=== PATIENT | male | born 1955 | race Caucasian/White ===

== ENCOUNTER 2017-03-10 11:05 | Inpatient (IN) | payer SELFPAY ==
[2017-03-10] VITALS (7 sets, daily range): BP systolic 123–154; BP diastolic 72–100; PULSE 92–116; RESP 16–18; TEMP 96.3–102.1; O2SAT 93–97
[~2017-03-10] VITALS: Ht 167.6 cm; Wt 76.3 kg
--- NOTE | 2017-03-10 11:18 | PD ---
HPI Chief Complaint: General Weakness Time Seen by Provider: 11:12 Travel History International Travel<30 days: No Contact w/Intl Traveler<30days: No Traveled to known affect area: No History of Present Illness HPI C/O FEVER, PAINFUL URINATION, DARK URINE, BODY ACHES, DECREASED APPETITE, STATES SUPRAPUBIC AREA OF PAIN (SHARP, 03/17, NO ALLEVIATING/AGGRAVATING FACTORS ) PT DOES STATE THAT HE IS NAUSEOUS BUT DENIES V/D/CP/HERNANDEZ PFSH Past Medical History Hx Anticoagulant Therapy: No Cardiovascular Problems: Yes (HTN) Diabetes: No Social History Tobacco Use: No Allergies-Medications (Allergen,Severity, Reaction): Coded Allergies: No Known Allergies (Unverified , 03/10/17) Reported Meds & Prescriptions Reported Meds & Active Scripts Active Reported [Htn Med] 1 Tab PO DAILY [Diuretic] 1 Tab PO DAILY Amlodipine (Amlodipine Besylate) 5 Mg Tab 5 Mg PO DAILY Review of Systems Except as stated in HPI: all other systems reviewed are Neg General / Constitutional: Positive: Fever, Chills Genitourinary: Positive: Urgency, Dysuria, Hematuria Musculoskeletal: Positive: Myalgias Physical Exam Narrative GENERAL: SKIN: Warm and dry. HEAD: Atraumatic. Normocephalic. EYES: Pupils equal and round. No scleral icterus. No injection or drainage. ENT: No nasal bleeding or discharge. Mucous membranes pink and moist. NECK: Trachea midline. No JVD. CARDIOVASCULAR: Regular rate and rhythm. RESPIRATORY: No accessory muscle use. Clear to auscultation. Breath sounds equal bilaterally. GASTROINTESTINAL: Abdomen soft, MILD SUPRAPUBIC TTP, nondistended. NEG CVA TTP MUSCULOSKELETAL: Extremities without clubbing, cyanosis, or edema. No obvious deformities. NEUROLOGICAL: Awake and alert. No obvious cranial nerve deficits. Motor grossly within normal limits. Five out of 5 muscle strength in the arms and legs. Normal speech. PSYCHIATRIC: Appropriate mood and affect; insight and judgment normal. Data Data Last Documented VS Vital Signs Date Time Temp Pulse Resp B/P Pulse Ox O2 Delivery O2 Flow Rate FiO2 03/10/17 12:15 99.3 103 16 150/72 97 Room Air Orders Complete Blood Count With Diff (03/10/17 11:14) Comprehensive Metabolic Panel (03/10/17 11:14) Lactic Acid Sepsis Protocol (03/10/17 11:14) Lipase (03/10/17 11:14) Urinalysis - C+S If Indicated (03/10/17 11:14) Influenzae A/B Antigen (03/10/17 11:14) Blood Culture (03/10/17 11:14) Chest, Single Ap (03/10/17 11:14) Sodium Chlor 0.9% 1000 Ml Inj (Ns 1000 M (03/10/17 11:30) Ibuprofen Liq (Motrin Liq) (03/10/17 11:30) Ceftriaxone Inj (Rocephin Inj) (03/10/17 11:30) Ct Abd/Pel W/O Iv Contrast (03/10/17 11:29) Urine Culture (03/10/17 11:30) Sodium Chlor 0.9% 1000 Ml Inj (Ns 1000 M (03/10/17 12:45) Admit To Inpatient (03/10/17 ) Vital Signs (Adult) Q4H (03/10/17 13:03) Neuro Checks Q4H (03/10/17 13:03) Activity Oob Ad Vivien (03/10/17 13:03) Diet Regular Basic (03/10/17 Lunch) Sodium Chlor 0.9% 1000 Ml Inj (Ns 1000 M (03/10/17 13:03) Sodium Chloride 0.9% Flush (Ns Flush) (03/10/17 13:15) Sodium Chloride 0.9% Flush (Ns Flush) (03/10/17 21:00) Basic Metabolic Panel (Bmp) (03/11/17 06:00) Complete Blood Count With Diff (03/11/17 06:00) Creatine Kinase (Cpk) (03/10/17 13:03) Ceftriaxone Inj (Rocephin Inj) (03/11/17 14:00) Admit Order (Ed Use Only) (03/10/17 13:12) Labs Laboratory Tests Test 03/10/17 03/10/17 11:30 11:40 Urine Color BROWN Urine Turbidity CLOUDY Urine pH 6.5 Urine Specific [place] 1.026 Urine Protein 100 mg/dL Urine Glucose (UA) NEG mg/dL Urine Ketones TRACE mg/dL Urine Occult Blood LARGE Urine Nitrite POS Urine Bilirubin NEG Urine Leukocyte Esterase SMALL Urine RBC INNUM /hpf Urine WBC INNUM /hpf Urine WBC Clumps MANY Urine Bacteria RARE /hpf Microscopic Urinalysis Comment CULTURE INDICATED White Blood Count 23.5 TH/MM3 Red Blood Count 5.59 MIL/MM3 Hemoglobin 16.7 GM/DL Hematocrit 48.5 % Mean Corpuscular Volume 86.7 FL Mean Corpuscular Hemoglobin 29.8 PG Mean Corpuscular Hemoglobin 34.4 % Concent Red Cell Distribution Width 12.7 % Platelet Count 192 TH/MM3 Mean Platelet Volume 8.9 FL Neutrophils (%) (Auto) 88.4 % Lymphocytes (%) (Auto) 2.5 % Monocytes (%) (Auto) 6.8 % Eosinophils (%) (Auto) 0.1 % Basophils (%) (Auto) 2.2 % Neutrophils # (Auto) 20.8 TH/MM3 Lymphocytes # (Auto) 0.6 TH/MM3 Monocytes # (Auto) 1.6 TH/MM3 Eosinophils # (Auto) 0.0 TH/MM3 Basophils # (Auto) 0.5 TH/MM3 CBC Comment DIFF FINAL Differential Comment Sodium Level 139 MEQ/L Potassium Level 3.0 MEQ/L Chloride Level 100 MEQ/L Carbon Dioxide Level 26.0 MEQ/L Anion Gap 13 MEQ/L Blood Urea Nitrogen 15 MG/DL Creatinine 1.40 MG/DL Estimat Glomerular Filtration 52 ML/MIN Rate Random Glucose 183 MG/DL Lactic Acid Level 3.6 mmol/L Calcium Level 9.2 MG/DL Total Bilirubin 1.1 MG/DL Aspartate Amino Transf 18 U/L (AST/SGOT) Alanine Aminotransferase 40 U/L (ALT/SGPT) Alkaline Phosphatase 84 U/L Total Creatine Kinase 166 U/L Total Protein 8.1 GM/DL Albumin 3.9 GM/DL Lipase 92 U/L [facility] Medical Decision Making Medical Screen Exam Complete: Yes Emergency Medical Condition: Yes Medical Record Reviewed: Yes Differential Diagnosis UTI V PYELO V INFECTED KIDNEY STONE V DIVERTIC V APPY Narrative Course PATIENT SEEN AND STARTED ON SEPSIS PROTOCOL AND GIVEN IV ABX [place]. AFTER EVALUATION AND TREATMENT, PT IS MUCH IMPROVED AND IS LESS PAINFUL AND TOLERATING EVERYTHING WELL NOW. I MADE PT AWARE OF RESULTS AND NEED FOR ADMISSION AND FURTHER IV TREATMENT. CASE D/W ADMITTING DOC Sepsis Criteria SIRS Criteria (2 or more): WBC > 81666, < 4000 or > 10% bands Severe Sepsis (+one): Lactate >2 Diagnosis Primary Impression: SEPSIS-SUSPECT URINARY SOURCE Admitting Information Admitting Physician Requests: Observation Marek Kearns MD Mar 10, 2017 11:18
[2017-03-10] MEDS ORDERED: DEPRESSION MED PO (11:20)
[2017-03-10] MEDS ORDERED: DIURTAB PO (11:24)
[2017-03-10] MEDS ORDERED: AMLO5TAB2 PO (11:24)
[2017-03-10] MEDS ORDERED: HTN MED PO (11:24)
[2017-03-10] MEDS ORDERED: cefTRIAXone INJ 1,000 MG in SODIUM CHLORIDE 0.9% INJ 100 ML IV ONE (11:30)
[2017-03-10] MEDS ORDERED: SODIUM CHLOR 0.9% 1000 ML INJ 1,000 ML IV ONE ×2 (11:30→12:45)
[2017-03-10] MEDS ORDERED: IBUPROFEN SUSP 100 MG/5 ML UDC PO ONE (11:30)
[2017-03-10 11:51] LABS: AUTOMATED NEUTROPHIL # 20.8 TH/MM3 (1.8-7.7); BASOPHIL # 0.5 TH/MM3 (0-0.2); BASOPHIL % 2.2 % (0.0-2.0); EOSINOPHIL % 0.1 % (0.0-4.0); HEMATOCRIT 48.5 % (39.0-51.0); LYMPH % 2.5 % (9.0-44.0); LYMPHOCYTE # 0.6 TH/MM3 (1.0-4.8); MEAN CELL VOLUME 86.7 FL (80.0-100.0); MEAN CORPUSCULAR HEMOGLOBIN 29.8 PG (27.0-34.0); MEAN CORPUSCULAR HGB CONC 34.4 % (32.0-36.0); MONO % 6.8 % (0.0-8.0); NEUT % 88.4 % (16.0-70.0); PLATELET COUNT 192 TH/MM3 (150-450); RED BLOOD COUNT 5.59 MIL/MM3 (4.50-5.90); RED CELL DISTRIBUTION WIDTH 12.7 % (11.6-17.2); WHITE BLOOD COUNT 23.5 TH/MM3 (4.0-11.0)
[2017-03-10 11:53] LABS: BLOOD, URINE LARGE (NEG); GLUCOSE,URINE NEG (NEG); KETONE, URINE TRACE mg/dL (NEG); PH, URINE 6.5 (5.0-8.5)
[2017-03-10 11:53] LABS: HEMO FLAGS DIFF FINAL
[2017-03-10 11:54] LABS: NITRITE,URINE POS (NEG)
--- NOTE | 2017-03-10 11:54 | RADRPT ---
EXAM DATE/TIME: 03/10/2017 11:33 [facility] COMPARISON: No previous studies available for comparison. INDICATIONS : Fever, hemuturia. MEDICAL HISTORY : None. SURGICAL HISTORY : None. ENCOUNTER: Initial ACUITY: 2 days PAIN SCORE: 0/10 LOCATION: Bilateral chest FINDINGS: A single view of the chest demonstrates the lungs to be symmetrically aerated without evidence of mas s, infiltrate or effusion. The cardiomediastinal contours are unremarkable. Osseous structures are intact. CONCLUSION: No acute disease. Harvey Roque MD FACR on March 10, 2017 at 11:51 Board Certified Radiologist. This report was verified electronically.
[2017-03-10 12:00] LABS: CHLORIDE 100 MEQ/L (98-107); SODIUM (NA) 139 MEQ/L (136-145)
[2017-03-10 12:03] LABS: ANION GAP 13 MEQ/L (5-15)
[2017-03-10 12:04] LABS: BLOOD UREA NITROGEN 15 MG/DL (7-18)
[2017-03-10 12:05] LABS: URINE COLOR BROWN (YELLW/STRAW)
[2017-03-10 12:06] LABS: WBC, URINE INNUM /hpf (0-5)
[2017-03-10 12:06] LABS: ALT (GPT) 40 U/L (12-78); AST (GOT) 18 U/L (15-37)
[2017-03-10 12:07] LABS: GLOMERULAR FILTRATION RATE 52 ML/MIN (>89)
[2017-03-10 12:07] LABS: BACTERIA, URINE RARE /hpf; COMMENT (UR) CULTURE INDICATED; CULTURE IF INDICATED CULTURE INDICATED; RBC, URINE INNUM /hpf (0-3)
[2017-03-10 12:08] LABS: TOTAL BILIRUBIN ADULT 1.1 MG/DL (0.2-1.0)
[2017-03-10 12:09] LABS: ALKALINE PHOSPHATASE 84 U/L (45-117)
--- NOTE | 2017-03-10 12:09 | RADRPT ---
EXAM DATE/TIME: 03/10/2017 11:41 [facility] COMPARISON: No previous studies available for comparison. INDICATIONS : Dizziness, fever, and painful urination with pelvic pain. Episodes of hematuria. Evaluate for calculi . ORAL CONTRAST: No oral contrast ingested. RADIATION DOSE: 13.15 CTDIvol (mGy) MEDICAL HISTORY : Hypertension. SURGICAL HISTORY : None. ENCOUNTER: Initial ACUITY: 2 days PAIN SCALE: 10/10 LOCATION: lower quadrant TECHNIQUE: Volumetric scanning of the abdomen and pelvis was performed. Using automated exposure control and ad justment of the mA and/or kV according to patient size, radiation dose was kept as low as reasonably achievable to obtain optimal diagnostic quality images. DICOM format image data is available electro nically for review and comparison. FINDINGS: LOWER LUNGS: The visualized lower lungs are clear. LIVER: Homogeneous density without lesion. There is no dilation of the biliary tree. A few tiny calcified gallstones in the gallbladder. No surrounding inflammatory changes.. SPLEEN: Normal size without lesion. PANCREAS: Within normal limits. KIDNEYS: Normal in size and shape. There is no mass or hydronephrosis. 3 mm stone upper pole left kidney not causing obstruction. ADRENAL GLANDS: Within normal limits. VASCULAR: There is no aortic aneurysm. BOWEL/MESENTERY: The stomach, small bowel, and colon demonstrate no acute abnormality. There is no free intraperitone al air or fluid. The appendix is unremarkable. No inflammatory changes. ABDOMINAL WALL: Within normal limits. RETROPERITONEUM: There is no lymphadenopathy. BLADDER: There is a 1.7 cm calcified stone in the urinary bladder. REPRODUCTIVE: The prostate is diffusely enlarged at 7.2 x 6.9 cm. INGUINAL: There is no lymphadenopathy or hernia. MUSCULOSKELETAL: Within normal limits for patient age. CONCLUSION: 1. Large calcified bladder stone. 2. 3 mm stone upper pole left kidney not causing obstruction. 3. A few tiny gallstones in the gallbladder. No biliary tract obstruction. 4. Diffuse enlargement of the prostate gland. Jose Luis Rushing MD on March 10, 2017 at 12:02 Board Certified Radiologist. This report was verified electronically.
[2017-03-10] MEDS: SODIUM CHLOR 0.9% 1000 ML INJ 1,000 ML IV SCH ×2 (13:03→14:03)
[2017-03-10] MEDS ORDERED: SODIUM CHLORIDE 0.9% FLUSH 10 ML FLUSH IV FLUSH PRN (13:15)
[2017-03-10 13:46] LABS: LACTIC ACID GHOST NOT REPORTABLE
[2017-03-10] MEDS ORDERED: KETOROLAC TROMETHAMINE 60 MG/2 ML (IM) VIAL IM PRN (15:15)
--- NOTE | 2017-03-10 15:37 | HHI.HP ---
[facility] [place] No Primary Care Physician Admission Diagnosis SEPSIS-POSSIBLE SOURCE INFECTED KIDNEY STONE Diagnoses: Chief Complaint: Fever and confusion Travel History International Travel<30 Days: Yes Contact w/Intl Traveler <30 Da: Yes Name of Country Traveled to: [place] Traveled to Known Affected Are: No Sepsis Criteria SIRS Criteria (2 or more): Temp > 100.9 or < 96.8, Heart rate over 90, WBC > 44865, < 4000 or > 10% bands Sepsis Criteria (SIRS+source): Infect source susp/known Severe Sepsis (+one): Lactate >2 Criteria Outcome: Meets severe sepsis criteria History of Present Illness Patient is a 61-year-old gentleman with a history of hypertension and prostate enlargement has come to the emergency room complaining of confusion, myalgias and fever of 105 at home per his spouse. Patient had some increasing dysuria and frequency and is noted to be septic on exam with evidence of urinary tract infection. Images did show a very large bladder stone. Patient denies any history of nephrolithiasis and has not had any trouble previously with kidney trouble or pain. He was quite confused since family was concerned because he was delirious. Patient's been admitted to the hospital with signs and symptoms of sepsis. His symptoms have improved with IV hydration and initiation of antibiotics and the patient's bladder and testicular pain is now 3 out of 10 from 7 out of 10 after ibuprofen in the emergency room. Review of Systems Constitutional: DENIES: Diaphoretic episodes, Fatigue, Fever, Weight gain, Weight loss, Chills, Dizziness, Change in appetite, Night Sweats Endocrine: DENIES: Heat/cold intolerance, Polydipsia, Polyuria, Polyphagia Eyes: DENIES: Blurred vision, Diplopia, Eye inflammation, Eye pain, Vision loss , Photosensitivity, Double Vision Ears, nose, mouth, throat: DENIES: Tinnitus, Hearing loss, Vertigo, Nasal discharge, Oral lesions, Throat pain, Hoarseness, Ear Pain, Running Nose, Epistaxis, Sinus Pain, Toothache, Odynophagia Respiratory: DENIES: Apneas, Cough, Snoring, Wheezing, Hemoptysis, Sputum production, Shortness of breath Cardiovascular: DENIES: Chest pain, Palpitations, Syncope, Dyspnea on Exertion , PND, Lower Extremity Edema, Orthopnea, Claudication Gastrointestinal: DENIES: Abdominal pain, Black stools, Bloody stools, Constipation, Diarrhea, Nausea, Vomiting, Difficulty Swallowing, Anorexia Genitourinary: COMPLAINS OF: Urgency, Dysuria, Testicular Pain, DENIES: Sexual dysfunction, Urinary frequency, Urinary incontinence, Hematuria, Nocturia , Penile Discharge, Testicular Swelling Musculoskeletal: DENIES: Joint pain, Muscle aches, Stiffness, Joint Swelling, Back pain, Neck pain Integumentary: DENIES: Abnormal pigmentation, Nail changes, Pruritus, Rash Hematologic/lymphatic: DENIES: Bruising, Lymphadenopathy Immunologic/allergic: DENIES: Eczema, Urticaria Neurologic: DENIES: Abnormal gait, Headache, Localized weakness, Paresthesias, Seizures, Speech Problems, Tremor, Poor Balance Psychiatric: COMPLAINS OF: Confusion, DENIES: Anxiety, Mood changes, Depression, Hallucinations, Agitation, Suicidal Ideation, Homicidal Ideation, Delusions Past Family Social History Past Medical History Hypertension Prostatic hyperplasia Past Surgical History Denies major surgery, had repair of the neck laceration Reported Medications Reviewed in the medical record, nothing new (patient's prescriptions are from [place]) Allergies: Coded Allergies: No Known Allergies (Unverified , 03/10/17) Active Ordered Medications Reviewed in the medical record Family History No family history of renal stones, family history hypertension and his mother and his father had coronary artery disease as well as prostate cancer Social History No tobacco or alcohol dependency, visiting from [place] Physical Exam Vital Signs Vital Signs Date Time Temp Pulse Resp B/P Pulse Ox O2 Delivery O2 Flow Rate FiO2 03/10/17 14:17 96.3 97 16 147/89 93 03/10/17 13:45 99.5 92 16 134/75 95 Room Air 03/10/17 13:15 94 16 146/79 95 Room Air 03/10/17 12:15 99.3 103 16 150/72 97 Room Air 03/10/17 11:16 16 95 Room Air 03/10/17 11:08 101.1 116 16 154/100 95 Physical Exam GENERAL: This is a well-nourished, well-developed patient, in no apparent distress. SKIN: No rashes, ecchymoses or lesions. Cool and dry. HEAD: Atraumatic. Normocephalic. No temporal or scalp tenderness. EYES: Pupils equal round and reactive. Extraocular motions intact. No scleral icterus. No injection or drainage. ENT: Nose without bleeding, purulent drainage or septal hematoma. Throat without erythema, tonsillar hypertrophy or exudate. Uvula midline. Airway patent. NECK: Trachea midline. No JVD or lymphadenopathy. Supple, nontender, no meningeal signs. CARDIOVASCULAR: Regular rate and rhythm without murmurs, gallops, or rubs. RESPIRATORY: Clear to auscultation. Breath sounds equal bilaterally. No wheezes , rales, or rhonchi. GASTROINTESTINAL: Bladder tenderness on exam, otherwise Abdomen soft, non-tender , nondistended. No hepato-splenomegaly, or palpable masses. No guarding. MUSCULOSKELETAL: Extremities without clubbing, cyanosis, or edema. No joint tenderness, effusion, or edema noted. No calf tenderness. Negative Homans sign bilaterally. NEUROLOGICAL: Awake and alert. Cranial nerves II through XII intact. Motor and sensory grossly within normal limits. Five out of 5 muscle strength in all muscle groups. Normal speech. Laboratory Laboratory Tests Test 03/10/17 03/10/17 11:30 11:40 Urine Color BROWN Urine Turbidity CLOUDY Urine pH 6.5 Urine Specific [place] 1.026 Urine Protein 100 Urine Glucose (UA) NEG Urine Ketones TRACE Urine Occult Blood LARGE Urine Nitrite POS Urine Bilirubin NEG Urine Leukocyte Esterase SMALL Urine RBC INNUM Urine WBC INNUM Urine WBC Clumps MANY Urine Bacteria RARE Microscopic Urinalysis Comment CULTURE INDICATED White Blood Count 23.5 Red Blood Count 5.59 Hemoglobin 16.7 Hematocrit 48.5 Mean Corpuscular Volume 86.7 Mean Corpuscular Hemoglobin 29.8 Mean Corpuscular Hemoglobin 34.4 Concent Red Cell Distribution Width 12.7 Platelet Count 192 Mean Platelet Volume 8.9 Neutrophils (%) (Auto) 88.4 Lymphocytes (%) (Auto) 2.5 Monocytes (%) (Auto) 6.8 Eosinophils (%) (Auto) 0.1 Basophils (%) (Auto) 2.2 Neutrophils # (Auto) 20.8 Lymphocytes # (Auto) 0.6 Monocytes # (Auto) 1.6 Eosinophils # (Auto) 0.0 Basophils # (Auto) 0.5 CBC Comment DIFF FINAL Differential Comment Sodium Level 139 Potassium Level 3.0 Chloride Level 100 Carbon Dioxide Level 26.0 Anion Gap 13 Blood Urea Nitrogen 15 Creatinine 1.40 Estimat Glomerular Filtration 52 Rate Random Glucose 183 Lactic Acid Level 3.6 Calcium Level 9.2 Total Bilirubin 1.1 Aspartate Amino Transf 18 (AST/SGOT) Alanine Aminotransferase 40 (ALT/SGPT) Alkaline Phosphatase 84 Total Creatine Kinase 166 Total Protein 8.1 Albumin 3.9 Lipase 92 Date/Time Procedure Status Source Growth 03/10/17 11:50 Influenza Types A,B Antigen (ANGELITA) - Final Complete Nasal Washing NEGATIVE FOR FLU A AND B ANTIGEN.... 03/10/17 11:50 Aerobic Blood Culture Received Blood Peripheral Pending 03/10/17 11:50 Anaerobic Blood Culture Received Blood Peripheral Pending 03/10/17 11:30 Urine Culture Received Urine Clean Catch Pending Result Diagram: 03/10/17 1140 03/10/17 1140 Imaging Last Impressions Abdomen/Pelvis CT 03/10/17 1129 Signed Impressions: Service Date/Time: Friday, March 10, 2017 11:41 - CONCLUSION: 1. Large calcified bladder stone. 2. 3 mm stone upper pole left kidney not causing obstruction. 3. A few tiny gallstones in the gallbladder. No biliary tract obstruction. 4. Diffuse enlargement of the prostate gland. Jose Luis Rushing MD Chest X-Ray 03/10/17 1114 Signed Impressions: Service Date/Time: Friday, March 10, 2017 11:33 - CONCLUSION: No acute disease. Harvey Roque MD FACR Septic Shock Reassessment Heart: Other (sinus tachycardia) Lungs: Clear Skin: Warm Peripheral Pulses: Bounding Right Radial Bounding Left Radial Bounding Right Popliteal Bounding Left Popliteal Bounding Right Dorsalis Pedis Bounding Left Dorsalis Pedis Bounding Right Posterior Tibial Bounding Left Posterior Tibial Capillary Refill: Brisk Assessment and Plan Problem List: (1) Kidney stone ICD Code: N20.0 Status: Acute Plan: Patient has history of kidney stones, patient still is rather large and pain is consistent with the location Urological evaluation pending Continue with IV fluids and antibiotics (2) Sepsis ICD Code: A41.9 Status: Acute Plan: Severe sepsis Patient with fever 101.1, heart rate 116. Leukocytosis with elevated lactic acid. Likely sepsis from UTI, complicated Continue with IV hydration and antibiotics (3) Acute kidney injury ICD Code: N17.9 Status: Acute Plan: Continue with IV hydration, avoid nephrotoxins (4) HTN (hypertension) ICD Code: I10 Status: Acute Plan: Controlled on amlodipine, will follow Physician Certification 2 Midnight Certification Type: Admission for Inpatient Services Order for Inpatient Services The services are ordered in accordance with Medicare regulations or non- Medicare payer requirements, as applicable. In the case of services not specified as inpatient-only, they are appropriately provided as inpatient services in accordance with the 2-midnight benchmark. Estimated LOS (days): 3 3 days is the estimated time the patient will need to remain in the hospital, assuming treatment plan goals are met and no additional complications. Post-Hospital Plan: Home Meredith Campos MD Mar 10, 2017 15:37
[2017-03-10] MEDS ORDERED: LIDOCAINE HCL 2% JELLY 5 ML SYRINGE TOPICAL ONE (17:00)
--- NOTE | 2017-03-10 17:07 | PD.CONS ---
HPI Service Urology Consult Requested By Primary Care Physician No Primary Care Physician Diagnosis: (1) Kidney stone ICD Code: N20.0 (2) Sepsis ICD Code: A41.9 (3) Acute kidney injury ICD Code: N17.9 (4) HTN (hypertension) ICD Code: I10 History of Present Illness 61-year-old male presents with lower abdominal pain and history of difficulty urinating with fever and chills. CT scan upon presentation demonstrated a large bladder stone approximately 3 cm in size with benign prostatic hypertrophy. There is no evidence of any hydronephrosis. His creatinine on admission was 1.4. According to his daughter, she does state that he does have difficulty with urination and goes often to the bathroom. This is been going on for some time. He does not note a prior history of urinary tract infections or hematuria. 16 Portuguese De Anda catheter was placed at the bedside without difficulty and approximately 200 cc were noted upon return. His white count on admission is 23.5 and his urinalysis demonstrates nitrite positive with many white cells. Review of Systems Constitutional: COMPLAINS OF: Fever Endocrine: DENIES: Heat/cold intolerance Eyes: DENIES: Blurred vision Ears, nose, mouth, throat: DENIES: Tinnitus Respiratory: DENIES: Apneas Cardiovascular: DENIES: Chest pain Gastrointestinal: COMPLAINS OF: Abdominal pain Genitourinary: DENIES: Sexual dysfunction Musculoskeletal: DENIES: Joint pain Hematologic/lymphatic: DENIES: Bruising Immunologic/allergic: DENIES: Eczema Neurologic: DENIES: Abnormal gait Past Family Social History Past Medical History Hypertension BPH Past Surgical History None Reported Medications Refer to chart Allergies: Coded Allergies: No Known Allergies (Unverified , 03/10/17) Family History Father with history of prostate cancer Social History Denies smoking drinking or using drugs Physical Exam Vital Signs Date Time Temp Pulse Resp B/P Pulse Ox O2 Delivery O2 Flow Rate FiO2 03/10/17 16:00 96.9 93 16 142/76 94 03/10/17 14:17 96.3 97 16 147/89 93 03/10/17 13:45 99.5 92 16 134/75 95 Room Air 03/10/17 13:15 94 16 146/79 95 Room Air 03/10/17 12:15 99.3 103 16 150/72 97 Room Air 03/10/17 11:16 16 95 Room Air 03/10/17 11:08 101.1 116 16 154/100 95 Physical Exam GENERAL: This is a well-nourished, well-developed patient, in no apparent distress. SKIN: No rashes, ecchymoses or lesions. Cool and dry. HEAD: Atraumatic. Normocephalic. No temporal or scalp tenderness. EYES: Pupils equal round and reactive. Extraocular motions intact. No scleral icterus. No injection or drainage. ENT: Nose without bleeding, purulent drainage or septal hematoma. Throat without erythema, tonsillar hypertrophy or exudate. Uvula midline. Airway patent. NECK: Trachea midline. No JVD or lymphadenopathy. Supple, nontender, no meningeal signs. CARDIOVASCULAR: Regular rate and rhythm without murmurs, gallops, or rubs. RESPIRATORY: Clear to auscultation. Breath sounds equal bilaterally. No wheezes , rales, or rhonchi. GASTROINTESTINAL: Abdomen soft, non-tender, nondistended. No hepato-splenomegaly , or palpable masses. No guarding. GENITOURINARY: Uncircumcised phallus, testes descended nontender, 16 Portuguese De Anda catheter placed the bedside without difficulty. 200 cc of cloudy urine drained. Prostate 80 g smooth and no nodules, slightly tender. MUSCULOSKELETAL: Extremities without clubbing, cyanosis, or edema. No joint tenderness, effusion, or edema noted. No calf tenderness. Negative Homans sign bilaterally. NEUROLOGICAL: Awake and alert. Cranial nerves II through XII intact. Motor and sensory grossly within normal limits. Five out of 5 muscle strength in all muscle groups. Normal speech. Laboratory Tests Test 03/10/17 03/10/17 03/10/17 11:30 11:40 14:43 Urine Color BROWN Urine Turbidity CLOUDY Urine pH 6.5 Urine Specific [place] 1.026 Urine Protein 100 Urine Glucose (UA) NEG Urine Ketones TRACE Urine Occult Blood LARGE Urine Nitrite POS Urine Bilirubin NEG Urine Leukocyte Esterase SMALL Urine RBC INNUM Urine WBC INNUM Urine WBC Clumps MANY Urine Bacteria RARE Microscopic Urinalysis Comment CULTURE INDICATED White Blood Count 23.5 Red Blood Count 5.59 Hemoglobin 16.7 Hematocrit 48.5 Mean Corpuscular Volume 86.7 Mean Corpuscular Hemoglobin 29.8 Mean Corpuscular Hemoglobin 34.4 Concent Red Cell Distribution Width 12.7 Platelet Count 192 Mean Platelet Volume 8.9 Neutrophils (%) (Auto) 88.4 Lymphocytes (%) (Auto) 2.5 Monocytes (%) (Auto) 6.8 Eosinophils (%) (Auto) 0.1 Basophils (%) (Auto) 2.2 Neutrophils # (Auto) 20.8 Lymphocytes # (Auto) 0.6 Monocytes # (Auto) 1.6 Eosinophils # (Auto) 0.0 Basophils # (Auto) 0.5 CBC Comment DIFF FINAL Differential Comment Sodium Level 139 Potassium Level 3.0 Chloride Level 100 Carbon Dioxide Level 26.0 Anion Gap 13 Blood Urea Nitrogen 15 Creatinine 1.40 Estimat Glomerular Filtration 52 Rate Random Glucose 183 Lactic Acid Level 3.6 4.4 Calcium Level 9.2 Total Bilirubin 1.1 Aspartate Amino Transf 18 (AST/SGOT) Alanine Aminotransferase 40 (ALT/SGPT) Alkaline Phosphatase 84 Total Creatine Kinase 166 Total Protein 8.1 Albumin 3.9 Lipase 92 Date/Time Procedure Status Source Growth 03/10/17 11:50 Influenza Types A,B Antigen (ANGELITA) - Final Complete Nasal Washing NEGATIVE FOR FLU A AND B ANTIGEN.... 03/10/17 11:50 Aerobic Blood Culture Received Blood Peripheral Pending 03/10/17 11:50 Anaerobic Blood Culture Received Blood Peripheral Pending 03/10/17 11:30 Urine Culture Received Urine Clean Catch Pending Result Diagram: 03/10/17 1140 03/10/17 1140 Imaging Last Impressions Abdomen/Pelvis CT 03/10/17 1129 Signed Impressions: Service Date/Time: Friday, March 10, 2017 11:41 - CONCLUSION: 1. Large calcified bladder stone. 2. 3 mm stone upper pole left kidney not causing obstruction. 3. A few tiny gallstones in the gallbladder. No biliary tract obstruction. 4. Diffuse enlargement of the prostate gland. Jose Luis Rushing MD Chest X-Ray 03/10/17 1114 Signed Impressions: Service Date/Time: Friday, March 10, 2017 11:33 - CONCLUSION: No acute disease. Harvey Roque MD FACR Assessment and Plan Assessment and Plan 61-year-old male presenting with history of BPH with obstruction and lower urinary tract symptoms with large 3-4 cm bladder calculus noted on CT scan with evidence of possible urosepsis. Maintain De Anda catheter Continue IV antibiotics, follow culture results. Start Flomax 0.4 mg by mouth daily at bedtime. Surgical intervention is not indicated at this time due to signs of sepsis. He will need catheter drainage until his infection clears and then will need an outpatient cystoscopy litholapaxy. We'll follow with you and thank you for the consult and allowing me to participate in the care of this patient. Mika Garcia DO Mar 10, 2017 17:07
[2017-03-10] MEDS: TAMSULOSIN HCL 0.4 MG CAP PO SCH (18:24)
[2017-03-10] MEDS: SODIUM CHLORIDE 0.9% FLUSH 10 ML FLUSH IV FLUSH SCH (20:08)
[2017-03-10] MEDS: ACETAMINOPHEN 325 MG TAB PO PRN (21:08)
[2017-03-11] VITALS: BP 120/82; PULSE 104; RESP 18; TEMP 99.9; O2SAT 96
[2017-03-11 00:19] LABS: LACTIC ACID GHOST NOT REPORTABLE
[2017-03-11] MEDS: SODIUM CHLOR 0.9% 1000 ML INJ 1,000 ML IV SCH ×2 (01:22→19:03)
[2017-03-11 04:00] VITALS: BP 130/84; PULSE 106; RESP 16; TEMP 102; O2SAT 95
[2017-03-11] MEDS: ACETAMINOPHEN 325 MG TAB PO PRN ×3 (04:23→23:42)
[2017-03-11 07:32] LABS: AUTOMATED NEUTROPHIL # 18.4 TH/MM3 (1.8-7.7); BASOPHIL % 0.1 % (0.0-2.0); HEMATOCRIT 41.1 % (39.0-51.0); LYMPH % 4.3 % (9.0-44.0); LYMPHOCYTE # 0.9 TH/MM3 (1.0-4.8); MEAN CELL VOLUME 87.3 FL (80.0-100.0); MEAN CORPUSCULAR HEMOGLOBIN 29.8 PG (27.0-34.0); MEAN CORPUSCULAR HGB CONC 34.2 % (32.0-36.0); NEUT % 88.6 % (16.0-70.0); PLATELET COUNT 134 TH/MM3 (150-450); RED BLOOD COUNT 4.71 MIL/MM3 (4.50-5.90); WHITE BLOOD COUNT 20.8 TH/MM3 (4.0-11.0)
[2017-03-11 07:55] LABS: HEMO FLAGS AUTO DIFF
[2017-03-11 07:58] LABS: BICARBONATE 24.8 MEQ/L (21.0-32.0)
[2017-03-11 08:00] VITALS: BP 136/83; PULSE 94; RESP 18; TEMP 98.8; O2SAT 95
[2017-03-11] MEDS: TAMSULOSIN HCL 0.4 MG CAP PO SCH (08:24)
[2017-03-11] MEDS: amLODIPine BESYLATE 5 MG TAB PO SCH (08:24)
[2017-03-11] MEDS: SODIUM CHLORIDE 0.9% FLUSH 10 ML FLUSH IV FLUSH SCH ×2 (08:25→21:00)
[2017-03-11 08:44] LABS: SCAN/DIFF AUTO DIFF CONFIRMED
[2017-03-11] MEDS ORDERED: POTASSIUM CHLORIDE 10 MEQ CONTROLLED RELEASE TAB PO ONE (08:45)
--- NOTE | 2017-03-11 11:10 | HHI.PR ---
Subjective Remarks Patient seen today in follow-up for sepsis, UTI with stone. Discussed with urology yesterday who recommended continue IV antibiotics and treating infection. Patient will need outpatient lithotripsy. Discussed with patient. Leukocytosis mildly improved but still febrile at 102.0. Blood cultures are now positive. Objective Vitals Vital Signs Date Time Temp Pulse Resp B/P Pulse Ox O2 Delivery O2 Flow Rate FiO2 03/11/17 08:00 98.8 94 18 136/83 95 03/11/17 04:00 102.0 106 16 130/84 95 03/11/17 00:00 99.9 104 18 120/82 96 03/10/17 20:00 102.1 108 18 123/90 95 03/10/17 17:20 20 03/10/17 16:00 96.9 93 16 142/76 94 03/10/17 14:17 96.3 97 16 147/89 93 03/10/17 13:45 99.5 92 16 134/75 95 Room Air 03/10/17 13:15 94 16 146/79 95 Room Air 03/10/17 12:15 99.3 103 16 150/72 97 Room Air 03/10/17 11:16 16 95 Room Air 03/10/17 11:08 101.1 116 16 154/100 95 I/O 03/10/17 03/10/17 03/10/17 03/11/17 03/11/17 03/11/17 07:00 15:00 23:00 07:00 15:00 23:00 Intake Total 2100 ml 1400 ml Output Total 650 ml Balance 2100 ml -650 ml 1400 ml Intake IV Total 2100 ml 1400 ml Output Urine Total 650 ml Result Diagram: 03/11/17 0650 03/11/17 0650 A/P Problem List: (1) Kidney stone ICD Code: N20.0 Status: Acute Plan: Patient has history of kidney stones, maintain fagan Urological evaluation appreciated Continue with IV fluids and antibiotics (2) Sepsis ICD Code: A41.9 Status: Acute Plan: Severe sepsis Patient with fever 102.0 heart rate improved Leukocytosis mildly improved with improved lactic acid. Likely sepsis from UTI, complicated Continue with IV hydration and antibiotics (3) Acute kidney injury ICD Code: N17.9 Status: Acute Plan: improved Continue with IV hydration, avoid nephrotoxins (4) HTN (hypertension) ICD Code: I10 Status: Acute Plan: Controlled on amlodipine, will follow Meredith Campos MD Mar 11, 2017 11:10
[2017-03-11 12:00] VITALS: BP 156/91; PULSE 106; RESP 18; TEMP 101.7; O2SAT 94
[2017-03-11] MEDS ORDERED: cefTRIAXone INJ 1,000 MG in SODIUM CHLORIDE 0.9% INJ 100 ML IV SCH (14:00)
[2017-03-11 16:00] VITALS: BP 142/83; PULSE 102; RESP 18; TEMP 99.9; O2SAT 94
--- NOTE | 2017-03-11 16:37 | MB ---
cc: ZEENAT HARRIS MD DATE OF CONSULTATION 03/11/[address] Campos REASON FOR CONSULTATION Bacteremia/stone. HISTORY OF PRESENT ILLNESS This is a 61-year-old male who was admitted to the hospital after he presented to the emergency department with general weakness. The patient complained of fever painful urination, dark urine, body aches and decreased appetite. The patient is Albanian-speaking only and I was unable to obtain information from him because of the language diarrhea. I obtained information from the medical record. The patient was evaluated in the emergency department. He had a heart rate of 103 and temperature 99.3 and white count of 23.5 and also abnormal urinalysis and lactic acid level of 3.6. The patient was evaluated in the emergency department and he was admitted. He was admitted with diagnosis of sepsis-suspect urinary source. Urinalysis was abnormal and a urine culture was taken. The urine culture has gram-negative maru. Four bottles of blood cultures taken on admission has gram-negative maru with one bottle identified as E-coli. Testing for influenza was negative. The patient's temperature jazlyn to 102.1 degrees yesterday evening and again today the temperature jazlyn to 101.7 degrees. He is currently awake and he appears alert. He indicates that he has no pain but he feels warm. He has a De Anda catheter in place. He was started on intravenous ceftriaxone today. Yesterday, he received ceftriaxone as well. The white count today remains elevated. CT scan of the abdomen was performed and it showed a large calcified bladder stone and also a 3 mm stone at the upper pole of the left kidney, not causing obstruction. A few tiny gallstones were noted in the gallbladder. No biliary obstruction. Diffuse enlargement of the prostate gland was also noted. This is the first visit noted for this patient to this facility. The patient was evaluated by urology. It was felt that surgical intervention was not indicated. PAST MEDICAL HISTORY Hypertension, prostatic hyperplasia, repair of neck laceration. ALLERGIES NO KNOWN DRUG ALLERGIES. MEDICATIONS 1. Ceftriaxone. 2. Norvasc. 3. Tylenol. 4. Flomax. 5. Toradol. SOCIAL HISTORY The patient is originally from [place]. Rare alcohol use. No tobacco, no illicit drugs. FAMILY HISTORY Unable to obtain. REVIEW OF SYSTEMS Review of systems reviewed in the medical record. PHYSICAL EXAMINATION GENERAL: This is a well-developed male who does not appear to be in any acute distress. He is awake, alert and oriented. HEENT: Head atraumatic. Extraocular movements grossly intact. Pupils reactive to light. No icterus. Oropharynx moist mucosa. No lesions. NECK: Supple. LUNGS: Clear to auscultation. HEART: Tachycardiac. No murmurs or rubs or gallops. ABDOMEN: Bowel sounds present, soft, no tenderness appreciated. : Normal genitalia. RECTAL: Not performed. EXTREMITIES: No clubbing or cyanosis or edema. SKIN: No rash. NEURO: No gross focal findings. LABORATORY DATA WBC 20.8, 88% neutrophils, platelet count 134, hemoglobin 14.0, creatinine 1.20, BUN 17, estimated GFR 62, sodium 143. IMPRESSION 1. Sepsis from urinary tract infection due to gram-negative maru. Preliminary identification of E-coli in one of blood culture bottle. 2. Gram-negative UTI, probably due to E-coli as is in the blood stream. 3. Leukocytosis secondary to infection. 4. Bladder stone as well as left kidney stone. RECOMMENDATIONS 1. Continue ceftriaxone but increase the dose to 2 grams every 24 hours. 2. Monitor the gram-negative maru in the urine. 3. Monitor the blood cultures and sensitivity of the E-coli and follow the other blood culture. 4. Monitor white blood cell count and temperature. Thank you for this consultation. The patient's progress will be monitored and further recommendations will be given on followup if necessary. Zeenat Harris MD FD/REJI /2:48 PM /4:19 PM
[2017-03-11 20:00] VITALS: BP 142/99; PULSE 105; RESP 20; TEMP 100.6; O2SAT 94
[2017-03-12] VITALS (7 sets, daily range): BP systolic 140–161; BP diastolic 67–103; PULSE 63–110; RESP 18–20; TEMP 96.6–102.4; O2SAT 91–98
[2017-03-12] MEDS ORDERED: MORPHINE SULFATE 4 MG/ML INJ IV PUSH PRN (00:30)
[2017-03-12] MEDS: MORPHINE SULFATE 8 MG/ML INJ IV PUSH PRN ×3 (00:31→13:03)
[2017-03-12] MEDS: SODIUM CHLOR 0.9% 1000 ML INJ 1,000 ML IV SCH ×2 (05:41→15:03)
[2017-03-12 06:32] LABS: AUTOMATED NEUTROPHIL # 18.1 TH/MM3 (1.8-7.7); BASOPHIL # 0.1 TH/MM3 (0-0.2); BASOPHIL % 0.7 % (0.0-2.0); HEMATOCRIT 43.3 % (39.0-51.0); LYMPH % 5.5 % (9.0-44.0); LYMPHOCYTE # 1.2 TH/MM3 (1.0-4.8); MEAN CELL VOLUME 88.2 FL (80.0-100.0); MEAN CORPUSCULAR HEMOGLOBIN 29.6 PG (27.0-34.0); MEAN CORPUSCULAR HGB CONC 33.5 % (32.0-36.0); MONO % 7.4 % (0.0-8.0); NEUT % 86.4 % (16.0-70.0); PLATELET COUNT 141 TH/MM3 (150-450); RED BLOOD COUNT 4.91 MIL/MM3 (4.50-5.90); RED CELL DISTRIBUTION WIDTH 13.1 % (11.6-17.2); WHITE BLOOD COUNT 20.9 TH/MM3 (4.0-11.0)
[2017-03-12 06:35] LABS: POTASSIUM 3.5 MEQ/L (3.5-5.1)
[2017-03-12 06:38] LABS: BICARBONATE 24.7 MEQ/L (21.0-32.0)
[2017-03-12 06:50] LABS: HEMO FLAGS AUTO DIFF
[2017-03-12 07:23] LABS: SCAN/DIFF AUTO DIFF CONFIRMED
[2017-03-12] MEDS: amLODIPine BESYLATE 5 MG TAB PO SCH (07:59)
[2017-03-12] MEDS: TAMSULOSIN HCL 0.4 MG CAP PO SCH (07:59)
[2017-03-12] MEDS: ACETAMINOPHEN 325 MG TAB PO PRN ×2 (07:59→16:01)
[2017-03-12] MEDS: SODIUM CHLORIDE 0.9% FLUSH 10 ML FLUSH IV FLUSH SCH ×2 (08:02→21:00)
--- NOTE | 2017-03-12 08:12 | HHI.PR ---
Subjective Patient symptoms today Pt seen and examined. + b/c's with fever noted. c/o bladder spasms Objective Vital Signs Vital Signs Date Time Temp Pulse Resp B/P Pulse Ox O2 Delivery O2 Flow Rate FiO2 03/12/17 04:00 98.8 96 20 144/94 95 03/12/17 01:12 96.6 63 18 141/67 98 03/12/17 00:00 101.7 105 18 143/92 91 03/11/17 20:00 100.6 105 20 142/99 94 03/11/17 16:00 99.9 102 18 142/83 94 03/11/17 12:00 101.7 106 18 156/91 94 Intake & Output 03/12/17 03/12/17 07:00 19:00 Intake Total 200 ml Output Total 1150 ml Balance -950 ml Intake Oral 200 ml Output Urine Total 1150 ml # Bowel Movements 0 Result Diagram: 03/12/1760403/12/17604 Objective Remarks Abd:soft,nd, some tenderness over bladder De Anda with clear urine Medications and IVs Current Medications Medications (Trade) Dose Ordered Sig/Osmel Route Start Time Stop Time Status Last Admin (NS 1000 ml Inj) 1,000 ml @ 100 mls/hr Q10H IV 03/10/17 13:03 03/12/17 05:41 (NS Flush) 2 ml UNSCH PRN IV FLUSH 03/10/17 13:15 (NS Flush) 2 ml BID IV FLUSH 03/10/17 21:00 03/12/17 08:02 (Flomax) 0.4 mg DAILY PO 03/10/17 17:15 03/12/17 07:59 (Tylenol) 650 mg Q6HR PRN PO 03/10/17 21:00 03/12/17 07:59 Amlodipine Besylate 5 mg 5 mg DAILY PO 03/11/17 09:00 03/12/17 07:59 (Rocephin Inj/NS Inj) 100 ml @ 200 mls/hr Q24H IV 03/12/17 14:00 (Morphine Inj) 4 mg Q3H PRN IV PUSH 03/12/17 00:30 03/12/17 07:58 Assessment and Plan Assessment and Plan 61-year-old male presenting with history of BPH with obstruction and lower urinary tract symptoms with large 3-4 cm bladder calculus noted on CT scan with evidence of possible urosepsis. Maintain De Anda catheter Continue IV antibiotics, follow culture results. Start Flomax 0.4 mg by mouth daily at bedtime. Surgical intervention is not indicated at this time due to signs of sepsis. He will need catheter drainage until his infection clears and then will need an outpatient cystoscopy litholapaxy. We'll follow with you and thank you for the consult and allowing me to participate in the care of this patient. 03/12 61-year-old male presenting with history of BPH with obstruction and lower urinary tract symptoms with large 3-4 cm bladder calculus noted on CT scan with evidence gram - bacteremia Maintain De Anda catheter drainage Continue IV ABX. Follow B/C results and check sensitivities. Cystolithopaxy as outpatient. Levsin and B&O suppositories for bladder spasms. Mika Garcia DO Mar 12, 2017 08:12
[2017-03-12] MEDS ORDERED: HYOSCYAMINE 0.125 MG TAB PO PRN (09:00)
[2017-03-12] MEDS ORDERED: MISCELLANEOUS PHARMACY INFORMATION XX PRN ×2 (11:30)
[2017-03-12] MEDS ORDERED: ASP: Path resistant to other antimicrobials, culture proven PRN (12:00)
--- NOTE | 2017-03-12 12:31 | HHI.PR ---
Subjective Remarks Patient seen in follow-up for bladder stone with associated bacteremia and sepsis. Still febrile, ESBL in urine and in bloodstream. ID consult appreciated. Still with leukocytosis Objective Vitals Vital Signs Date Time Temp Pulse Resp B/P Pulse Ox O2 Delivery O2 Flow Rate FiO2 03/12/17 08:59 20 03/12/17 08:03 20 03/12/17 08:00 99.1 102 18 140/91 95 03/12/17 04:00 98.8 96 20 144/94 95 03/12/17 01:12 96.6 63 18 141/67 98 03/12/17 00:00 101.7 105 18 143/92 91 03/11/17 20:00 100.6 105 20 142/99 94 03/11/17 16:00 99.9 102 18 142/83 94 I/O 03/11/17 03/11/17 03/11/17 03/12/17 03/12/17 03/12/17 06:59 14:59 22:59 06:59 14:59 22:59 Intake Total 1400 ml 750 ml 200 ml Output Total 700 ml 1150 ml Balance 1400 ml 50 ml -950 ml Intake Oral 750 ml 200 ml IV Total 1400 ml Output Urine Total 700 ml 1150 ml # Bowel Movements 0 Result Diagram: 03/12/17 0605 03/12/17 0605 A/P Problem List: (1) Kidney stone ICD Code: N20.0 Status: Acute Plan: Patient has history of kidney stones, maintain fagan Urological evaluation appreciated Continue with IV fluids and antibiotics (2) Sepsis ICD Code: A41.9 Status: Acute Plan: Severe sepsis secondary to ESBL Escherichia coli in the urine and blood stream Patient with fever 11.7 heart rate improved Leukocytosis mildly improved with improved lactic acid. Likely sepsis from UTI/bacteremia, complicated Continue with IV hydration and antibiotics (meropenem) per ID (3) Acute kidney injury ICD Code: N17.9 Status: Resolved Plan: improved Continue with IV hydration, avoid nephrotoxins (4) HTN (hypertension) ICD Code: I10 Status: Acute Plan: uncontrolled on amlodipine alone We'll add Coreg as patient's medications are from [place] and he does not recall what they are Discharge Planning Continue current IV antibiotics Meredith Campos MD Mar 12, 2017 12:31
[2017-03-12] MEDS: CARVEDILOL 6.25 MG TAB PO SCH ×2 (13:02→21:30)
[2017-03-12] MEDS: MEROPENEM INJ 1,000 MG in SODIUM CHLORIDE 0.9% INJ 100 ML IV SCH (13:20)
[2017-03-12] MEDS ORDERED: cefTRIAXone INJ 2,000 MG in SODIUM CHLORIDE 0.9% INJ 100 ML IV SCH (14:00)
[2017-03-12] MEDS: BELLADONNA ALKALOIDS/OPIUM 60 MG SUPP RECTAL PRN (16:10)
--- NOTE | 2017-03-12 16:23 | HHI.IDPN ---
Note Infectious Disease Note Patient has spiking temps. Feels ill. D/W RN. Interpretation assistance by ASHLEY. Notes pain at the suprapubic area. Notes that he had chills earlier today. Denies back or flank pain. Notes that he has pain when he passes urine laying down but no pain when standing up. Has fagan in place. Patient was admitted to the hospital after he presented to the emergency department with general weakness. The patient complained of fever painful urination, dark urine, body aches and decreased appetite. PAST MEDICAL HISTORY Hypertension, prostatic hyperplasia, repair of neck laceration. ALLERGIES NO KNOWN DRUG ALLERGIES. ANTIBIOTICS: Ceftriaxone changed to Meropenem earlier today. SOCIAL HISTORY The patient is originally from [place]. Rare alcohol use. No tobacco, no illicit drugs. OBJECTIVE: Vital Signs Date Time Temp Pulse Resp B/P Pulse Ox O2 Delivery O2 Flow Rate FiO2 03/12/17 13:08 20 03/12/17 12:00 99.1 101 18 161/102 94 03/12/17 08:59 20 03/12/17 08:00 99.1 102 18 140/91 95 03/12/17 04:00 98.8 96 20 144/94 95 03/12/17 01:12 96.6 63 18 141/67 98 03/12/17 00:00 101.7 105 18 143/92 91 03/11/17 20:00 100.6 105 20 142/99 94 03/11/17 03/11/17 03/12/17 15:00 23:00 07:00 Intake Total 750 ml 200 ml Output Total 700 ml 1150 ml Balance 50 ml -950 ml Intake Oral 750 ml 200 ml Output Urine Total 700 ml 1150 ml # Bowel Movements 0 Laboratory Tests Test 03/11/17 03/12/17 06:50 06:05 White Blood Count 20.8 TH/MM3 20.9 TH/MM3 Red Blood Count 4.71 MIL/MM3 4.91 MIL/MM3 Hemoglobin 14.0 GM/DL 14.5 GM/DL Hematocrit 41.1 % 43.3 % Mean Corpuscular Volume 87.3 FL 88.2 FL Mean Corpuscular Hemoglobin 29.8 PG 29.6 PG Mean Corpuscular Hemoglobin 34.2 % 33.5 % Concent Red Cell Distribution Width 13.0 % 13.1 % Platelet Count 134 TH/MM3 141 TH/MM3 Mean Platelet Volume 8.6 FL 9.8 FL Neutrophils (%) (Auto) 88.6 % 86.4 % Lymphocytes (%) (Auto) 4.3 % 5.5 % Monocytes (%) (Auto) 7.0 % 7.4 % Eosinophils (%) (Auto) 0.0 % 0.0 % Basophils (%) (Auto) 0.1 % 0.7 % Neutrophils # (Auto) 18.4 TH/MM3 18.1 TH/MM3 Lymphocytes # (Auto) 0.9 TH/MM3 1.2 TH/MM3 Monocytes # (Auto) 1.5 TH/MM3 1.5 TH/MM3 Eosinophils # (Auto) 0.0 TH/MM3 0.0 TH/MM3 Basophils # (Auto) 0.0 TH/MM3 0.1 TH/MM3 CBC Comment AUTO DIFF AUTO DIFF Differential Comment AUTO DIFF AUTO DIFF CONFIRMED CONFIRMED Laboratory Tests Test 03/10/17 03/11/17 03/11/17 03/12/17 22:18 00:40 06:50 06:05 Lactic Acid Level 2.8 mmol/L 2.9 mmol/L 2.2 mmol/L Sodium Level 143 MEQ/L 143 MEQ/L Potassium Level 3.0 MEQ/L 3.5 MEQ/L Chloride Level 106 MEQ/L 109 MEQ/L Carbon Dioxide Level 24.8 MEQ/L 24.7 MEQ/L Anion Gap 12 MEQ/L 9 MEQ/L Blood Urea Nitrogen 17 MG/DL 14 MG/DL Creatinine 1.20 MG/DL 1.00 MG/DL Estimat Glomerular Filtration 62 ML/MIN 76 ML/MIN Rate Random Glucose 154 MG/DL 142 MG/DL Calcium Level 8.2 MG/DL 8.7 MG/DL Microbiology Date/Time Procedure Status Source Growth 03/10/17 11:30 Urine Culture - Final Complete Urine Clean Catch Escherichia Coli Esbl Positive 03/10/17 11:40 Aerobic Blood Culture - Preliminary Resulted Blood Peripheral Escherichia Coli Esbl Positive 03/10/17 11:40 Anaerobic Blood Culture - Preliminary Resulted Escherichia Coli Esbl Positive 03/10/17 11:50 Aerobic Blood Culture - Preliminary Resulted Blood Peripheral Escherichia Coli 03/10/17 11:50 Anaerobic Blood Culture - Preliminary Resulted Escherichia Coli Esbl Positive 03/10/17 11:50 Influenza Types A,B Antigen (ANGELITA) - Final Complete Nasal Washing NEGATIVE FOR FLU A AND B ANTIGEN.... IMAGING: Abdomen/Pelvis CT 03/10/17 1129 Signed Impressions: Service Date/Time: Friday, March 10, 2017 11:41 - CONCLUSION: 1. Large calcified bladder stone. 2. 3 mm stone upper pole left kidney not causing obstruction. 3. A few tiny gallstones in the gallbladder. No biliary tract obstruction. 4. Diffuse enlargement of the prostate gland. Jose Luis Rushing MD Chest X-Ray 03/10/17 1114 Signed Impressions: Service Date/Time: Friday, March 10, 2017 11:33 - CONCLUSION: No acute disease. Harvey Roque MD FACR PHYSICAL EXAMINATION GENERAL: No acute distress. looks ill. HEENT: Extraocular movements grossly intact. Pupils reactive to light. No icterus. Oropharynx moist mucosa. No lesions. NECK: Supple. LUNGS: Clear to auscultation. HEART: Tachycardiac. No murmurs or rubs or gallops. ABDOMEN: Bowel sounds present, soft, no tenderness appreciated. : Normal genitalia. EXTREMITIES: No clubbing or cyanosis or edema. SKIN: No rash. NEURO: No gross focal findings. IMPRESSION 1. Sepsis due to E. coli ESBL. urine source. 2. E. coli ESBL UTI. 3. Leukocytosis secondary to infection. WBC still elevated. 4. Bladder stone as well as left kidney stone. RECOMMENDATIONS 1. Continue Meropenem which I started earlier. 2. Monitor white blood cell count and temperature. 3. Discussed with medicine team to consider medication for spasms. 4. Treatment for bladder stone when infection is under control. Discussed plan with patient an . Tor Harris MD Mar 12, 2017 16:23
[2017-03-12] MEDS ORDERED: ENALAPRILAT 1.25 MG/ML VIAL IV PUSH PRN (16:45)
[2017-03-12 17:26] LABS: HEMOGLOBIN A1a 1.3 %; HEMOGLOBIN Ao 83.9 %; HEMOGLOBIN P3 4.1 %
[2017-03-12] MEDS: OXYBUTYNIN CHLORIDE 5 MG TAB PO SCH (21:30)
[2017-03-13] VITALS: BP 144/91; PULSE 101; RESP 18; TEMP 101.5; O2SAT 90
[2017-03-13] MEDS: MEROPENEM INJ 1,000 MG in SODIUM CHLORIDE 0.9% INJ 100 ML IV SCH ×4 (01:00→22:18)
[2017-03-13 06:24] LABS: AUTOMATED NEUTROPHIL # 11.4 TH/MM3 (1.8-7.7); BASOPHIL # 0.1 TH/MM3 (0-0.2); BASOPHIL % 0.4 % (0.0-2.0); EOSINOPHIL % 0.2 % (0.0-4.0); HEMATOCRIT 40.3 % (39.0-51.0); LYMPH % 7.8 % (9.0-44.0); LYMPHOCYTE # 1.1 TH/MM3 (1.0-4.8); MEAN CELL VOLUME 87.5 FL (80.0-100.0); MEAN CORPUSCULAR HGB CONC 33.2 % (32.0-36.0); NEUT % 82.6 % (16.0-70.0); PLATELET COUNT 175 TH/MM3 (150-450); RED BLOOD COUNT 4.61 MIL/MM3 (4.50-5.90); RED CELL DISTRIBUTION WIDTH 13.4 % (11.6-17.2); WHITE BLOOD COUNT 13.8 TH/MM3 (4.0-11.0)
[2017-03-13 06:25] LABS: HEMO FLAGS AUTO DIFF
[2017-03-13 08:00] VITALS: BP 163/102; PULSE 98; RESP 18; TEMP 100.7; O2SAT 94
[2017-03-13 08:42] LABS: BANDS 5 % (0-6); NEUTROPHIL # MANUAL DIFF 10.9 TH/MM3 (1.8-7.7); POLYS (SEG NEUTROPHILS) 74 % (16-70)
[2017-03-13 08:43] LABS: PLATELET ESTIMATE SMEAR NORMAL (NORMAL); PLATELET MORPHOLOGY NORMAL (NORMAL); SCAN/DIFF FINAL DIFF MANUAL
--- NOTE | 2017-03-13 08:48 | HHI.PR ---
Subjective Remarks The patient appears in some discomfort due to pain. He has pain with urination. Fagan is in. No blood in the urine. She is standing up says pain is getting better when he is standing up. Pain is worse when he is laying in bed. He has some fevers and chills. Nausea improved. No vomiting diarrhea or constipation. No rash on the body. Objective Vitals Vital Signs Date Time Temp Pulse Resp B/P Pulse Ox O2 Delivery O2 Flow Rate FiO2 03/13/17 08:00 100.7 98 18 163/102 94 03/13/17 00:00 101.5 101 18 144/91 90 03/12/17 20:00 101.6 110 18 158/103 93 03/12/17 16:00 102.4 104 18 156/102 94 03/12/17 13:08 20 03/12/17 12:00 99.1 101 18 161/102 94 03/12/17 08:59 20 I/O 03/12/17 03/12/17 03/12/17 03/13/17 03/13/17 03/13/17 07:00 15:00 23:00 07:00 15:00 23:00 Intake Total 200 ml 725 ml 420 ml 480 ml Output Total 1150 ml 875 ml 500 ml 850 ml Balance -950 ml -150 ml -80 ml -370 ml Intake Oral 200 ml 725 ml 420 ml 480 ml Output Urine Total 1150 ml 875 ml 500 ml 850 ml # Bowel Movements 0 0 0 Result Diagram: 03/13/17 0605 03/12/17 0605 Imaging Last Impressions Abdomen/Pelvis CT 03/10/17 1129 Signed Impressions: Service Date/Time: Friday, March 10, 2017 11:41 - CONCLUSION: 1. Large calcified bladder stone. 2. 3 mm stone upper pole left kidney not causing obstruction. 3. A few tiny gallstones in the gallbladder. No biliary tract obstruction. 4. Diffuse enlargement of the prostate gland. Jose Luis Rushing MD Chest X-Ray 03/10/17 1114 Signed Impressions: Service Date/Time: Friday, March 10, 2017 11:33 - CONCLUSION: No acute disease. Harvey Roque MD FACR Objective Remarks GENERAL: 61 yo male, well nourished, well developed patient, appears in nad. CARDIOVASCULAR: Regular rate and rhythm. RESPIRATORY: No accessory muscle use. Clear to auscultation. Breath sounds equal bilaterally. GASTROINTESTINAL: Abdomen soft, non-tender, nondistended. Hepatic and splenic margins not palpable. MUSCULOSKELETAL: Extremities without clubbing, cyanosis, or edema. No obvious deformities. NEUROLOGICAL: Awake and alert. No obvious cranial nerve deficits. Motor grossly within normal limits. Five out of 5 muscle strength in the arms and legs. Normal speech. PSYCHIATRIC: Appropriate mood and affect; insight and judgment normal. A/P Problem List: (1) Kidney stone ICD Code: N20.0 Status: Acute (2) Sepsis ICD Code: A41.9 Status: Acute (3) Acute kidney injury ICD Code: N17.9 Status: Resolved (4) HTN (hypertension) ICD Code: I10 Status: Acute Assessment and Plan (1) Kidney stone ICD Code: N20.0 Status: Acute Plan: Patient has history of kidney stones Maintain fagan Urological evaluation appreciated Continue with IV fluids and antibiotics Pain meds per pain scale PO and IV dilaudid for breakthrough pain (2) Sepsis ICD Code: A41.9 Status: Acute Plan: Severe sepsis secondary to ESBL Escherichia coli in the urine and blood stream Patient with fever 11.7 heart rate improved Leukocytosis mildly improved with improved lactic acid. Likely sepsis from UTI/bacteremia, complicated Continue with IV hydration and antibiotics (meropenem) per ID (3) Acute kidney injury ICD Code: N17.9 Status: Resolved Plan: improved Continue with IV hydration, avoid nephrotoxins (4) HTN (hypertension) ICD Code: I10 Status: Acute Plan: uncontrolled on amlodipine alone We'll add Coreg as patient's medications are from [place] and he does not recall what they are Patient also with pain , will add pain meds per pain scale Discharge Planning Pending improvement. Continue current IV antibiotics Discussed with the patient, nurse Annie Craig MD Mar 13, 2017 08:48
[2017-03-13] MEDS: SODIUM CHLORIDE 0.9% FLUSH 10 ML FLUSH IV FLUSH SCH ×2 (09:04→21:00)
[2017-03-13] MEDS: CARVEDILOL 6.25 MG TAB PO SCH ×2 (09:04→22:18)
[2017-03-13] MEDS: SODIUM CHLOR 0.9% 1000 ML INJ 1,000 ML IV SCH ×2 (09:04→21:03)
[2017-03-13] MEDS: amLODIPine BESYLATE 5 MG TAB PO SCH (09:04)
[2017-03-13] MEDS: OXYBUTYNIN CHLORIDE 5 MG TAB PO SCH ×2 (09:04→22:18)
[2017-03-13] MEDS: TAMSULOSIN HCL 0.4 MG CAP PO SCH (09:04)
[2017-03-13] MEDS: MORPHINE SULFATE 8 MG/ML INJ IV PUSH PRN (10:19)
[2017-03-13] MEDS ORDERED: HYDROmorphone HCL PF 1 MG/ML VIAL IV PRN (10:45)
[2017-03-13] MEDS ORDERED: NALOXONE HCL 0.4 MG/ML AMP IV PRN (10:45)
[2017-03-13 12:00] VITALS: BP 149/94; PULSE 99; RESP 20; TEMP 99.3; O2SAT 95
[2017-03-13 15:32] VITALS: BP 155/93; PULSE 93; RESP 20; TEMP 100; O2SAT 93
--- NOTE | 2017-03-13 17:15 | HHI.IDPN ---
Note Infectious Disease Note Patient continues to have pain in the lower abdomen. Feels it is a little better. C/O HERNANDEZ. Notes chills. WBC lower. Feels ill. Interpretation assistance by [employer]. Denies back or flank pain. Notes that he has pain when he passes urine laying down but no pain when standing up. Has fagan in place. urine looks clear. Patient was admitted to the hospital after he presented to the emergency department with general weakness. The patient complained of fever painful urination, dark urine, body aches and decreased appetite. PAST MEDICAL HISTORY Hypertension, prostatic hyperplasia, repair of neck laceration. ALLERGIES NO KNOWN DRUG ALLERGIES. ANTIBIOTICS: Meropenem. SOCIAL HISTORY The patient is originally from [place]. Rare alcohol use. No tobacco, no illicit drugs. OBJECTIVE: Vital Signs Date Time Temp Pulse Resp B/P Pulse Ox O2 Delivery O2 Flow Rate FiO2 03/13/17 15:32 100.0 93 20 155/93 93 03/13/17 12:00 99.3 99 20 149/94 95 03/13/17 08:00 100.7 98 18 163/102 94 03/13/17 00:00 101.5 101 18 144/91 90 03/12/17 20:00 101.6 110 18 158/103 93 03/12/17 03/12/17 03/13/17 15:00 23:00 07:00 Intake Total 725 ml 420 ml 480 ml Output Total 875 ml 500 ml 850 ml Balance -150 ml -80 ml -370 ml Intake Oral 725 ml 420 ml 480 ml Output Urine Total 875 ml 500 ml 850 ml # Bowel Movements 0 0 Laboratory Tests Test 03/12/17 03/13/17 06:05 06:05 White Blood Count 20.9 TH/MM3 13.8 TH/MM3 Red Blood Count 4.91 MIL/MM3 4.61 MIL/MM3 Hemoglobin 14.5 GM/DL 13.4 GM/DL Hematocrit 43.3 % 40.3 % Mean Corpuscular Volume 88.2 FL 87.5 FL Mean Corpuscular Hemoglobin 29.6 PG 29.0 PG Mean Corpuscular Hemoglobin 33.5 % 33.2 % Concent Red Cell Distribution Width 13.1 % 13.4 % Platelet Count 141 TH/MM3 175 TH/MM3 Mean Platelet Volume 9.8 FL 8.5 FL Neutrophils (%) (Auto) 86.4 % 82.6 % Lymphocytes (%) (Auto) 5.5 % 7.8 % Monocytes (%) (Auto) 7.4 % 9.0 % Eosinophils (%) (Auto) 0.0 % 0.2 % Basophils (%) (Auto) 0.7 % 0.4 % Neutrophils # (Auto) 18.1 TH/MM3 11.4 TH/MM3 Lymphocytes # (Auto) 1.2 TH/MM3 1.1 TH/MM3 Monocytes # (Auto) 1.5 TH/MM3 1.2 TH/MM3 Eosinophils # (Auto) 0.0 TH/MM3 0.0 TH/MM3 Basophils # (Auto) 0.1 TH/MM3 0.1 TH/MM3 CBC Comment AUTO DIFF AUTO DIFF Differential Comment AUTO DIFF FINAL DIFF CONFIRMED MANUAL Neutrophils % (Manual) 74 % Band Neutrophils % 5 % Lymphocytes % 12 % Monocytes % 9 % Neutrophils # (Manual) 10.9 TH/MM3 Platelet Estimate NORMAL Platelet Morphology Comment NORMAL Red Cell Morphology Comment NORMAL Laboratory Tests Test 03/12/17 06:05 Sodium Level 143 MEQ/L Potassium Level 3.5 MEQ/L Chloride Level 109 MEQ/L Carbon Dioxide Level 24.7 MEQ/L Anion Gap 9 MEQ/L Blood Urea Nitrogen 14 MG/DL Creatinine 1.00 MG/DL Estimat Glomerular Filtration 76 ML/MIN Rate Random Glucose 142 MG/DL Hemoglobin A1c 6.2 % Lactic Acid Level 2.2 mmol/L Calcium Level 8.7 MG/DL IMAGING: Abdomen/Pelvis CT 03/10/17 1129 Signed Impressions: Service Date/Time: Friday, March 10, 2017 11:41 - CONCLUSION: 1. Large calcified bladder stone. 2. 3 mm stone upper pole left kidney not causing obstruction. 3. A few tiny gallstones in the gallbladder. No biliary tract obstruction. 4. Diffuse enlargement of the prostate gland. Jose Luis Rushing MD Chest X-Ray 03/10/17 1114 Signed Impressions: Service Date/Time: Friday, March 10, 2017 11:33 - CONCLUSION: No acute disease. Harvey Roque MD FACR PHYSICAL EXAMINATION GENERAL: No acute distress. HEENT: Extraocular movements grossly intact. Pupils reactive to light. No icterus. Oropharynx moist mucosa. No lesions. NECK: Supple. LUNGS: Clear to auscultation. HEART: Nl S1S2 No murmurs or rubs or gallops. ABDOMEN: Bowel sounds present, soft, no tenderness appreciated. : Normal genitalia. EXTREMITIES: No clubbing or cyanosis or edema. SKIN: No rash. NEURO: No gross focal findings. IMPRESSION 1. Sepsis due to E. coli ESBL. urine source. 2. E. coli ESBL UTI. 3. Leukocytosis secondary to infection. WBC lower. 4. Bladder stone as well as left kidney stone. RECOMMENDATIONS 1. Continue Meropenem. 2. Follow white blood cell count and temperature. 3. Treatment for bladder stone when infection is under control. Tor Harris MD Mar 13, 2017 17:14
[2017-03-13] MEDS: BELLADONNA ALKALOIDS/OPIUM 60 MG SUPP RECTAL PRN (17:36)
[2017-03-13] MEDS: ACETAMINOPHEN/HYDROcodone 325 MG/5 MG TAB PO PRN (17:36)
[2017-03-13 20:00] VITALS: BP 124/69; PULSE 99; RESP 18; TEMP 100.4; O2SAT 95
[2017-03-13] MEDS: ACETAMINOPHEN/HYDROcodone 325 MG/7.5 MG TAB PO PRN (22:19)
[2017-03-14] VITALS: BP 135/93; PULSE 91; RESP 18; TEMP 100.7; O2SAT 92
[2017-03-14] MEDS: MEROPENEM INJ 1,000 MG in SODIUM CHLORIDE 0.9% INJ 100 ML IV SCH ×3 (06:18→21:00)
[2017-03-14] MEDS: SODIUM CHLOR 0.9% 1000 ML INJ 1,000 ML IV SCH ×2 (06:18→18:14)
[2017-03-14 06:22] LABS: AUTOMATED NEUTROPHIL # 6.9 TH/MM3 (1.8-7.7); BASOPHIL % 0.3 % (0.0-2.0); EOSINOPHIL # 0.1 TH/MM3 (0-0.4); EOSINOPHIL % 0.8 % (0.0-4.0); HEMATOCRIT 37.3 % (39.0-51.0); LYMPH % 12.8 % (9.0-44.0); LYMPHOCYTE # 1.3 TH/MM3 (1.0-4.8); MEAN CELL VOLUME 87.6 FL (80.0-100.0); MEAN CORPUSCULAR HEMOGLOBIN 29.9 PG (27.0-34.0); MEAN CORPUSCULAR HGB CONC 34.1 % (32.0-36.0); MONO % 15.6 % (0.0-8.0); NEUT % 70.5 % (16.0-70.0); PLATELET COUNT 164 TH/MM3 (150-450); RED BLOOD COUNT 4.25 MIL/MM3 (4.50-5.90); RED CELL DISTRIBUTION WIDTH 13.2 % (11.6-17.2); WHITE BLOOD COUNT 9.8 TH/MM3 (4.0-11.0)
[2017-03-14 06:24] LABS: HEMO FLAGS DIFF FINAL
[2017-03-14 06:28] LABS: POTASSIUM 3.2 MEQ/L (3.5-5.1)
[2017-03-14 06:36] LABS: BICARBONATE 25.7 MEQ/L (21.0-32.0)
[2017-03-14 08:00] VITALS: BP 131/83; PULSE 76; RESP 20; TEMP 98.9; O2SAT 95
--- NOTE | 2017-03-14 08:40 | HHI.PR ---
Subjective Remarks Patient in nad , says she is eating better, no nausea. Pain is better controlled by meds. No fever or chills overnight. Urine is clear no blood in it , has adequate urine OP. Objective Vitals Vital Signs Date Time Temp Pulse Resp B/P Pulse Ox O2 Delivery O2 Flow Rate FiO2 03/14/17 08:00 98.9 76 20 131/83 95 03/14/17 00:00 100.7 91 18 135/93 92 03/13/17 20:00 100.4 99 18 124/69 95 03/13/17 15:32 100.0 93 20 155/93 93 03/13/17 12:00 99.3 99 20 149/94 95 I/O 03/13/17 03/13/17 03/13/17 03/14/17 03/14/17 03/14/17 07:00 15:00 23:00 07:00 15:00 23:00 Intake Total 480 ml 630 ml 1800 ml 720 ml Output Total 850 ml 2200 ml 2650 ml Balance -370 ml -1570 ml 1800 ml -1930 ml Intake Oral 480 ml 630 ml 720 ml IV Total 1800 ml Output Urine Total 850 ml 2200 ml 2650 ml # Bowel Movements 0 1 0 Result Diagram: 03/14/17 0430 03/14/17 0430 Objective Remarks GENERAL: 61 yo male, well nourished, well developed patient, appears in nad. CARDIOVASCULAR: Regular rate and rhythm. RESPIRATORY: No accessory muscle use. Clear to auscultation. Breath sounds equal bilaterally. GASTROINTESTINAL: Abdomen soft, non-tender, nondistended. Hepatic and splenic margins not palpable. MUSCULOSKELETAL: Extremities without clubbing, cyanosis, or edema. No obvious deformities. NEUROLOGICAL: Awake and alert. No obvious cranial nerve deficits. Motor grossly within normal limits. Five out of 5 muscle strength in the arms and legs. Normal speech. PSYCHIATRIC: Appropriate mood and affect; insight and judgment normal. A/P Problem List: (1) Kidney stone ICD Code: N20.0 Status: Acute (2) Sepsis ICD Code: A41.9 Status: Acute (3) Acute kidney injury ICD Code: N17.9 Status: Resolved (4) HTN (hypertension) ICD Code: I10 Status: Acute Assessment and Plan (1) Kidney stone ICD Code: N20.0 Status: Acute Plan: Patient has history of kidney stones Maintain fagan Urological evaluation appreciated Continue with IV fluids and antibiotics Pain meds per pain scale PO and IV dilaudid for breakthrough pain (2) Sepsis ICD Code: A41.9 Status: Acute Plan: Severe sepsis secondary to ESBL Escherichia coli in the urine and blood stream Patient with fever 11.7 heart rate improved Leukocytosis mildly improved with improved lactic acid. Likely sepsis from UTI/bacteremia, complicated Continue with IV hydration and antibiotics (meropenem) per ID (3) Acute kidney injury ICD Code: N17.9 Status: Resolved Plan: improved Continue with IV hydration, avoid nephrotoxins (4) HTN (hypertension) ICD Code: I10 Status: Acute Plan: uncontrolled on amlodipine alone We'll add Coreg as patient's medications are from [place] and he does not recall what they are Patient also with pain , will add pain meds per pain scale Discharge Planning Pending improvement. Continue current IV antibiotics Discussed with the patient, nurse Annie Craig MD Mar 14, 2017 08:40
[2017-03-14] MEDS: SODIUM CHLORIDE 0.9% FLUSH 10 ML FLUSH IV FLUSH SCH ×2 (09:00→21:00)
[2017-03-14] MEDS: CARVEDILOL 6.25 MG TAB PO SCH ×2 (09:32→21:00)
[2017-03-14] MEDS: TAMSULOSIN HCL 0.4 MG CAP PO SCH (09:32)
[2017-03-14] MEDS: OXYBUTYNIN CHLORIDE 5 MG TAB PO SCH ×2 (09:33→21:00)
[2017-03-14] MEDS: amLODIPine BESYLATE 5 MG TAB PO SCH (09:33)
[2017-03-14 12:00] VITALS: BP 147/96; PULSE 77; RESP 20; TEMP 98.2; O2SAT 97
--- NOTE | 2017-03-14 15:27 | HHI.IDPN ---
Note Infectious Disease Note Patient feels better. Not having pain currently. No HERNANDEZ. No chills. WBC lower. Afebrile. Interpretation assistance by RN. Patient was admitted to the hospital after he presented to the emergency department with general weakness. The patient complained of fever painful urination, dark urine, body aches and decreased appetite. PAST MEDICAL HISTORY Hypertension, prostatic hyperplasia, repair of neck laceration. ALLERGIES NO KNOWN DRUG ALLERGIES. ANTIBIOTICS: Meropenem. SOCIAL HISTORY The patient is originally from [place]. Rare alcohol use. No tobacco, no illicit drugs. OBJECTIVE: Vital Signs Date Time Temp Pulse Resp B/P Pulse Ox O2 Delivery O2 Flow Rate FiO2 03/14/17 12:00 98.2 77 20 147/96 97 03/14/17 08:00 98.9 76 20 131/83 95 03/14/17 00:00 100.7 91 18 135/93 92 03/13/17 20:00 100.4 99 18 124/69 95 03/13/17 15:32 100.0 93 20 155/93 93 03/13/17 03/13/17 03/14/17 15:00 23:00 07:00 Intake Total 630 ml 1800 ml 720 ml Output Total 2200 ml 2650 ml Balance -1570 ml 1800 ml -1930 ml Intake Oral 630 ml 720 ml IV Total 1800 ml Output Urine Total 2200 ml 2650 ml # Bowel Movements 1 0 Laboratory Tests Test 03/13/17 03/14/17 06:05 04:30 White Blood Count 13.8 TH/MM3 9.8 TH/MM3 Red Blood Count 4.61 MIL/MM3 4.25 MIL/MM3 Hemoglobin 13.4 GM/DL 12.7 GM/DL Hematocrit 40.3 % 37.3 % Mean Corpuscular Volume 87.5 FL 87.6 FL Mean Corpuscular Hemoglobin 29.0 PG 29.9 PG Mean Corpuscular Hemoglobin 33.2 % 34.1 % Concent Red Cell Distribution Width 13.4 % 13.2 % Platelet Count 175 TH/MM3 164 TH/MM3 Mean Platelet Volume 8.5 FL 9.3 FL Neutrophils (%) (Auto) 82.6 % 70.5 % Lymphocytes (%) (Auto) 7.8 % 12.8 % Monocytes (%) (Auto) 9.0 % 15.6 % Eosinophils (%) (Auto) 0.2 % 0.8 % Basophils (%) (Auto) 0.4 % 0.3 % Neutrophils # (Auto) 11.4 TH/MM3 6.9 TH/MM3 Lymphocytes # (Auto) 1.1 TH/MM3 1.3 TH/MM3 Monocytes # (Auto) 1.2 TH/MM3 1.5 TH/MM3 Eosinophils # (Auto) 0.0 TH/MM3 0.1 TH/MM3 Basophils # (Auto) 0.1 TH/MM3 0.0 TH/MM3 CBC Comment AUTO DIFF DIFF FINAL Neutrophils % (Manual) 74 % Band Neutrophils % 5 % Lymphocytes % 12 % Monocytes % 9 % Neutrophils # (Manual) 10.9 TH/MM3 Differential Comment FINAL DIFF MANUAL Platelet Estimate NORMAL Platelet Morphology Comment NORMAL Red Cell Morphology Comment NORMAL Laboratory Tests Test 03/14/17 04:30 Sodium Level 143 MEQ/L Potassium Level 3.2 MEQ/L Chloride Level 109 MEQ/L Carbon Dioxide Level 25.7 MEQ/L Anion Gap 8 MEQ/L Blood Urea Nitrogen 13 MG/DL Creatinine 0.94 MG/DL Estimat Glomerular Filtration 82 ML/MIN Rate Random Glucose 97 MG/DL Calcium Level 8.2 MG/DL IMAGING: Abdomen/Pelvis CT 03/10/17 1129 Signed Impressions: Service Date/Time: Friday, March 10, 2017 11:41 - CONCLUSION: 1. Large calcified bladder stone. 2. 3 mm stone upper pole left kidney not causing obstruction. 3. A few tiny gallstones in the gallbladder. No biliary tract obstruction. 4. Diffuse enlargement of the prostate gland. Jose Luis Rushing MD Chest X-Ray 03/10/17 1114 Signed Impressions: Service Date/Time: Friday, March 10, 2017 11:33 - CONCLUSION: No acute disease. Harvey Roque MD FACR PHYSICAL EXAMINATION GENERAL: No acute distress. HEENT: Extraocular movements grossly intact. Pupils reactive to light. No icterus. Oropharynx moist mucosa. No lesions. NECK: Supple. LUNGS: Clear to auscultation. HEART: Nl S1S2 No murmurs or rubs or gallops. ABDOMEN: Bowel sounds present, soft, no tenderness. : Normal genitalia. EXTREMITIES: No clubbing or cyanosis or edema. SKIN: No rash. NEURO: No gross focal findings. IMPRESSION 1. Sepsis due to E. coli ESBL. urine source. 2. E. coli ESBL UTI. 3. Leukocytosis secondary to infection. WBC improved. 4. Bladder stone as well as left kidney stone. Appears to be improving. RECOMMENDATIONS 1. Continue Meropenem through 03/20/17. 2. Follow temperature. 3. Treatment for bladder stone when infection is under control. Tor Harris MD Mar 14, 2017 15:27
[2017-03-14 16:00] VITALS: BP 152/84; PULSE 85; RESP 20; TEMP 100.2; O2SAT 92
[2017-03-14 21:31] VITALS: BP 134/84; PULSE 88; RESP 18; TEMP 100.6; O2SAT 93
[2017-03-15 01:17] VITALS: BP 134/84; PULSE 88; RESP 18; TEMP 100.6; O2SAT 93
[2017-03-15] MEDS: MEROPENEM INJ 1,000 MG in SODIUM CHLORIDE 0.9% INJ 100 ML IV SCH ×3 (05:31→19:57)
[2017-03-15] MEDS: SODIUM CHLOR 0.9% 1000 ML INJ 1,000 ML IV SCH ×2 (05:31→14:27)
[2017-03-15] MEDS: ACETAMINOPHEN/HYDROcodone 325 MG/7.5 MG TAB PO PRN (05:33)
[2017-03-15 08:45] VITALS: BP 150/99; PULSE 75; RESP 15; TEMP 98.5; O2SAT 97
[2017-03-15] MEDS: CARVEDILOL 6.25 MG TAB PO SCH ×2 (08:46→19:59)
[2017-03-15] MEDS: OXYBUTYNIN CHLORIDE 5 MG TAB PO SCH ×2 (08:46→19:59)
[2017-03-15] MEDS: TAMSULOSIN HCL 0.4 MG CAP PO SCH (08:46)
[2017-03-15] MEDS: amLODIPine BESYLATE 5 MG TAB PO SCH (08:46)
[2017-03-15] MEDS: SODIUM CHLORIDE 0.9% FLUSH 10 ML FLUSH IV FLUSH SCH ×2 (08:47→19:52)
--- NOTE | 2017-03-15 13:01 | HHI.PR ---
Subjective Remarks Still with significant pain, fairly controlled by meds. No fever or chills overnight. Urine is clear. Still with some nausea, able to eat, no vomiting. Had 1 time diarrhea. Says he has bladder spasm , however meds helps a lot. Objective Vitals Vital Signs Date Time Temp Pulse Resp B/P Pulse Ox O2 Delivery O2 Flow Rate FiO2 03/15/17 08:45 98.5 75 15 150/99 97 03/15/17 06:33 20 03/15/17 05:57 03/15/17 01:17 100.6 88 18 134/84 93 03/14/17 21:31 100.6 88 18 134/84 93 03/14/17 16:00 100.2 85 20 152/84 92 I/O 03/14/17 03/14/17 03/14/17 03/15/17 03/15/17 03/15/17 07:00 15:00 23:00 07:00 15:00 23:00 Intake Total 720 ml 2309 ml 875 ml Output Total 2650 ml 1500 ml 1700 ml 1000 ml 2000 ml Balance -1930 ml 809 ml -825 ml -1000 ml -2000 ml Intake Oral 720 ml 840 ml IV Total 1469 ml 875 ml Output Urine Total 2650 ml 1500 ml 1700 ml 1000 ml 2000 ml # Bowel Movements 0 1 Result Diagram: 03/14/17 0430 03/14/17 0430 Imaging Last Impressions Abdomen/Pelvis CT 03/10/17 1129 Signed Impressions: Service Date/Time: Friday, March 10, 2017 11:41 - CONCLUSION: 1. Large calcified bladder stone. 2. 3 mm stone upper pole left kidney not causing obstruction. 3. A few tiny gallstones in the gallbladder. No biliary tract obstruction. 4. Diffuse enlargement of the prostate gland. Jose Luis Rushing MD Chest X-Ray 03/10/17 1114 Signed Impressions: Service Date/Time: Friday, March 10, 2017 11:33 - CONCLUSION: No acute disease. Harvey Roque MD FACR Objective Remarks GENERAL: 61 yo male, well nourished, well developed patient, appears in nad. CARDIOVASCULAR: Regular rate and rhythm. RESPIRATORY: No accessory muscle use. Clear to auscultation. Breath sounds equal bilaterally. GASTROINTESTINAL: Abdomen soft, non-tender, nondistended. Hepatic and splenic margins not palpable. MUSCULOSKELETAL: Extremities without clubbing, cyanosis, or edema. No obvious deformities. NEUROLOGICAL: Awake and alert. No obvious cranial nerve deficits. Motor grossly within normal limits. Five out of 5 muscle strength in the arms and legs. Normal speech. PSYCHIATRIC: Appropriate mood and affect; insight and judgment normal. A/P Problem List: (1) Kidney stone ICD Code: N20.0 Status: Acute (2) Sepsis ICD Code: A41.9 Status: Acute (3) Acute kidney injury ICD Code: N17.9 Status: Resolved (4) HTN (hypertension) ICD Code: I10 Status: Acute Assessment and Plan (1) Kidney stone ICD Code: N20.0 Status: Acute Plan: Patient has history of kidney stones Maintain fagan Urological evaluation appreciated Continue with IV fluids and antibiotics Pain meds per pain scale PO and IV dilaudid for breakthrough pain (2) Sepsis ICD Code: A41.9 Status: Acute Plan: Severe sepsis secondary to ESBL Escherichia coli in the urine and blood stream Patient with fever 11.7 heart rate improved Leukocytosis mildly improved with improved lactic acid. Likely sepsis from UTI/bacteremia, complicated Continue with IV hydration and antibiotics (meropenem) per ID (3) Acute kidney injury ICD Code: N17.9 Status: Resolved Plan: improved Continue with IV hydration, avoid nephrotoxins (4) HTN (hypertension) ICD Code: I10 Status: Acute Plan: uncontrolled on amlodipine alone We'll add Coreg as patient's medications are from [place] and he does not recall what they are Patient also with pain , will add pain meds per pain scale Discharge Planning Pending improvement. Continue current IV antibiotics Discussed with the patient, nurse Annie Craig MD Mar 15, 2017 13:01
[2017-03-15 13:25] VITALS: BP 131/75; PULSE 63; RESP 15; TEMP 96.3; O2SAT 97
[2017-03-15 18:09] VITALS: BP 152/93; PULSE 69; RESP 15; TEMP 99.7; O2SAT 94
[2017-03-15 20:28] VITALS: BP 165/90; PULSE 79; RESP 16; TEMP 99.2; O2SAT 92
[2017-03-16] MEDS: cloNIDine HCL 0.1 MG TAB PO PRN (00:04)
[2017-03-16] MEDS: SODIUM CHLOR 0.9% 1000 ML INJ 1,000 ML IV SCH ×3 (00:04→19:03)
[2017-03-16 00:09] VITALS: BP 153/93; PULSE 76; RESP 18; TEMP 99; O2SAT 96
[2017-03-16 00:57] VITALS: BP 128/91
[2017-03-16] MEDS: MEROPENEM INJ 1,000 MG in SODIUM CHLORIDE 0.9% INJ 100 ML IV SCH ×3 (05:19→22:13)
[2017-03-16] MEDS: SODIUM CHLORIDE 0.9% FLUSH 10 ML FLUSH IV FLUSH SCH ×2 (09:00→22:13)
[2017-03-16 09:33] VITALS: BP 145/93; PULSE 64; RESP 14; TEMP 98.4; O2SAT 98
[2017-03-16] MEDS: amLODIPine BESYLATE 5 MG TAB PO SCH (09:35)
[2017-03-16] MEDS: OXYBUTYNIN CHLORIDE 5 MG TAB PO SCH ×2 (09:35→22:10)
[2017-03-16] MEDS: TAMSULOSIN HCL 0.4 MG CAP PO SCH (09:35)
[2017-03-16] MEDS: CARVEDILOL 6.25 MG TAB PO SCH ×2 (09:35→22:10)
[2017-03-16] MEDS ORDERED: BENZOCAINE-MENTHOL (SUGAR FREE) 15 MG-3.6 MG LOZENGE BUCCAL PRN (12:30)
--- NOTE | 2017-03-16 12:30 | HHI.PR ---
Subjective Remarks Suprapubic pain improving. No fever or chills overnight. Nausea improved. No vomiting. Has normal BMs. Complaints of sore throat. Objective Vitals Vital Signs Date Time Temp Pulse Resp B/P Pulse Ox O2 Delivery O2 Flow Rate FiO2 03/16/17 09:33 98.4 64 14 145/93 98 03/16/17 04:52 03/16/17 00:57 128/91 03/16/17 00:09 99.0 76 18 153/93 96 03/15/17 20:28 99.2 79 16 165/90 92 03/15/17 18:09 99.7 69 15 152/93 94 03/15/17 13:25 96.3 63 15 131/75 97 I/O 03/15/17 03/15/17 03/15/17 03/16/17 03/16/17 03/16/17 07:00 15:00 23:00 07:00 15:00 23:00 Intake Total 1423 ml 2631 ml 686 ml Output Total 1000 ml 3000 ml 2025 ml 1450 ml Balance -1000 ml -1577 ml 606 ml -764 ml IV Total 1423 ml 2631 ml 686 ml Output Urine Total 1000 ml 3000 ml 2025 ml 1450 ml Result Diagram: 03/14/17 0430 03/14/17 0430 Imaging Last Impressions Abdomen/Pelvis CT 03/10/17 1129 Signed Impressions: Service Date/Time: Friday, March 10, 2017 11:41 - CONCLUSION: 1. Large calcified bladder stone. 2. 3 mm stone upper pole left kidney not causing obstruction. 3. A few tiny gallstones in the gallbladder. No biliary tract obstruction. 4. Diffuse enlargement of the prostate gland. Jose Luis Rushing MD Chest X-Ray 03/10/17 1114 Signed Impressions: Service Date/Time: Friday, March 10, 2017 11:33 - CONCLUSION: No acute disease. Harvey Roque MD FACR Objective Remarks GENERAL: 61 yo male, well nourished, well developed patient, appears in nad. CARDIOVASCULAR: Regular rate and rhythm. RESPIRATORY: No accessory muscle use. Clear to auscultation. Breath sounds equal bilaterally. GASTROINTESTINAL: Abdomen soft, non-tender, nondistended. Hepatic and splenic margins not palpable. MUSCULOSKELETAL: Extremities without clubbing, cyanosis, or edema. No obvious deformities. NEUROLOGICAL: Awake and alert. No obvious cranial nerve deficits. Motor grossly within normal limits. Five out of 5 muscle strength in the arms and legs. Normal speech. PSYCHIATRIC: Appropriate mood and affect; insight and judgment normal. A/P Problem List: (1) Kidney stone ICD Code: N20.0 Status: Acute (2) Sepsis ICD Code: A41.9 Status: Acute (3) Acute kidney injury ICD Code: N17.9 Status: Resolved (4) HTN (hypertension) ICD Code: I10 Status: Acute Assessment and Plan (1) Kidney stone ICD Code: N20.0 Status: Acute Plan: Patient has history of kidney stones Maintain fagan Urological evaluation appreciated Continue with IV fluids and antibiotics Pain meds per pain scale PO and IV dilaudid for breakthrough pain (2) Sepsis ICD Code: A41.9 Status: Acute Plan: Severe sepsis secondary to ESBL Escherichia coli in the urine and blood stream Repeat blood cultures 03/15/17 pending Patient with fever 11.7 heart rate improved Leukocytosis mildly improved with improved lactic acid. Likely sepsis from UTI/bacteremia, complicated Continue with IV hydration and antibiotics (meropenem) per ID (3) Acute kidney injury ICD Code: N17.9 Status: Resolved Plan: improved Continue with IV hydration, avoid nephrotoxins (4) HTN (hypertension) ICD Code: I10 Status: Acute Plan: uncontrolled on amlodipine alone We'll add Coreg as patient's medications are from [place] and he does not recall what they are Patient also with pain , will add pain meds per pain scale Discharge Planning Pending improvement. Continue current IV antibiotics Discussed with the patient, nurse, family at bedside Annie Craig MD Mar 16, 2017 12:30
[2017-03-16] MEDS ORDERED: POTASSIUM CHLORIDE 10 MEQ CONTROLLED RELEASE TAB PO ONE (13:00)
[2017-03-16 13:11] VITALS: BP 147/97; PULSE 69; RESP 16; TEMP 98.7; O2SAT 95
[2017-03-16 17:30] VITALS: BP 149/93; PULSE 80; RESP 16; TEMP 98.7; O2SAT 95
[2017-03-16 20:00] VITALS: BP 155/101; PULSE 66; RESP 20; TEMP 98.8; O2SAT 95
[2017-03-16] MEDS: ACETAMINOPHEN/HYDROcodone 325 MG/5 MG TAB PO PRN (22:16)
[2017-03-17] VITALS: BP 157/97; PULSE 66; RESP 20; TEMP 98; O2SAT 95
[2017-03-17] MEDS: cloNIDine HCL 0.1 MG TAB PO PRN (00:26)
[2017-03-17 01:52] VITALS: BP 138/85; PULSE 60; RESP 19; O2SAT 99
[2017-03-17] MEDS: SODIUM CHLOR 0.9% 1000 ML INJ 1,000 ML IV SCH ×2 (05:13→15:03)
[2017-03-17] MEDS: MEROPENEM INJ 1,000 MG in SODIUM CHLORIDE 0.9% INJ 100 ML IV SCH ×3 (05:13→21:00)
[2017-03-17 05:46] LABS: BASOPHIL % 0.7 % (0.0-2.0); EOSINOPHIL # 0.2 TH/MM3 (0-0.4); EOSINOPHIL % 3.1 % (0.0-4.0); HEMATOCRIT 42.2 % (39.0-51.0); HEMO FLAGS DIFF FINAL; LYMPH % 24.7 % (9.0-44.0); LYMPHOCYTE # 1.7 TH/MM3 (1.0-4.8); MEAN CELL VOLUME 87.3 FL (80.0-100.0); MEAN CORPUSCULAR HGB CONC 33.2 % (32.0-36.0); MONO % 12.8 % (0.0-8.0); NEUT % 58.7 % (16.0-70.0); PLATELET COUNT 284 TH/MM3 (150-450); RED BLOOD COUNT 4.84 MIL/MM3 (4.50-5.90); RED CELL DISTRIBUTION WIDTH 13.4 % (11.6-17.2); WHITE BLOOD COUNT 6.8 TH/MM3 (4.0-11.0)
[2017-03-17 05:53] LABS: POTASSIUM 3.7 MEQ/L (3.5-5.1)
[2017-03-17 05:58] LABS: BICARBONATE 24.5 MEQ/L (21.0-32.0); MAGNESIUM 2.3 MG/DL (1.5-2.5)
[2017-03-17] MEDS: SODIUM CHLORIDE 0.9% FLUSH 10 ML FLUSH IV FLUSH SCH ×2 (09:00→21:00)
[2017-03-17] MEDS: CARVEDILOL 6.25 MG TAB PO SCH ×2 (10:24→21:14)
[2017-03-17] MEDS: OXYBUTYNIN CHLORIDE 5 MG TAB PO SCH ×2 (10:25→21:14)
[2017-03-17] MEDS: TAMSULOSIN HCL 0.4 MG CAP PO SCH (10:25)
[2017-03-17] MEDS: amLODIPine BESYLATE 5 MG TAB PO SCH (10:25)
[2017-03-17] MEDS: ACETAMINOPHEN/HYDROcodone 325 MG/7.5 MG TAB PO PRN (10:26)
[2017-03-17 12:53] VITALS: BP 154/94; PULSE 65; RESP 19; TEMP 97.4; O2SAT 95
--- NOTE | 2017-03-17 14:59 | HHI.PR ---
Subjective Remarks Seen earlier today. Pain is better controlled with meds. Urine is clear. Less nauseated able to eat more. appetite is improving. No fever or chills. No n/v/d/c. Objective Vitals Vital Signs Date Time Temp Pulse Resp B/P Pulse Ox O2 Delivery O2 Flow Rate FiO2 03/17/17 12:53 97.4 65 19 154/94 95 03/17/17 11:07 18 03/17/17 01:52 60 19 138/85 99 03/17/17 00:00 98.0 66 20 157/97 95 03/16/17 20:00 98.8 66 20 155/101 95 03/16/17 17:30 98.7 80 16 149/93 95 I/O 03/16/17 03/16/17 03/16/17 03/17/17 03/17/17 03/17/17 07:00 15:00 23:00 07:00 15:00 23:00 Intake Total 686 ml 1640 ml 2395 ml 120 ml Output Total 1450 ml 1000 ml 3250 ml 1550 ml Balance -764 ml -1000 ml -1610 ml 2395 ml -1430 ml Intake Oral 1640 ml 120 ml IV Total 686 ml 2395 ml Output Urine Total 1450 ml 1000 ml 3250 ml 1550 ml # Bowel Movements 0 0 Result Diagram: 03/17/1728 03/17/17527 Imaging Last Impressions Abdomen/Pelvis CT 03/10/179 Signed Impressions: Service Date/Time: Friday, March 10, 2017 11:41 - CONCLUSION: 1. Large calcified bladder stone. 2. 3 mm stone upper pole left kidney not causing obstruction. 3. A few tiny gallstones in the gallbladder. No biliary tract obstruction. 4. Diffuse enlargement of the prostate gland. Jose Luis Rushing MD Chest X-Ray 03/10/17 1114 Signed Impressions: Service Date/Time: Friday, March 10, 2017 11:33 - CONCLUSION: No acute disease. Harvey Roque MD FACR Objective Remarks GENERAL: 61 yo male, well nourished, well developed patient, appears in nad. CARDIOVASCULAR: Regular rate and rhythm. RESPIRATORY: No accessory muscle use. Clear to auscultation. Breath sounds equal bilaterally. GASTROINTESTINAL: Abdomen soft, non-tender, nondistended. Hepatic and splenic margins not palpable. MUSCULOSKELETAL: Extremities without clubbing, cyanosis, or edema. No obvious deformities. NEUROLOGICAL: Awake and alert. No obvious cranial nerve deficits. Motor grossly within normal limits. Five out of 5 muscle strength in the arms and legs. Normal speech. PSYCHIATRIC: Appropriate mood and affect; insight and judgment normal. A/P Problem List: (1) Kidney stone ICD Code: N20.0 Status: Acute (2) Sepsis ICD Code: A41.9 Status: Acute (3) Acute kidney injury ICD Code: N17.9 Status: Resolved (4) HTN (hypertension) ICD Code: I10 Status: Acute Assessment and Plan (1) Kidney stone ICD Code: N20.0 Status: Acute Plan: Patient has history of kidney stones Maintain fagan Urological evaluation appreciated Continue with IV fluids and antibiotics Pain meds per pain scale PO and IV dilaudid for breakthrough pain (2) Sepsis ICD Code: A41.9 Status: Acute Plan: Severe sepsis secondary to ESBL Escherichia coli in the urine and blood stream Repeat blood cultures 03/15/17 so far NTD Patient with fever 11.7 heart rate improved Leukocytosis mildly improved with improved lactic acid. Likely sepsis from UTI/bacteremia, complicated Continue with IV hydration and antibiotics (meropenem) per ID (3) Acute kidney injury ICD Code: N17.9 Status: Resolved Plan: improved Continue with IV hydration, avoid nephrotoxins (4) HTN (hypertension) ICD Code: I10 Status: Acute Plan: uncontrolled on amlodipine alone We'll add Coreg as patient's medications are from [place] and he does not recall what they are Patient also with pain , will add pain meds per pain scale Discharge Planning Pending improvement. Continue current IV antibiotics Discussed with the patient, nurse, family at bedside Annie Craig MD Mar 17, 2017 14:59
[2017-03-17 17:02] VITALS: BP 135/82; PULSE 18; RESP 19; TEMP 98.1; O2SAT 95
[2017-03-17 20:00] VITALS: BP 143/89; PULSE 63; RESP 18; TEMP 98.2; O2SAT 98
[2017-03-18] VITALS: BP 145/92; PULSE 62; RESP 18; TEMP 97.1; O2SAT 96
[2017-03-18] MEDS: SODIUM CHLOR 0.9% 1000 ML INJ 1,000 ML IV SCH ×3 (01:03→21:03)
[2017-03-18] MEDS: MEROPENEM INJ 1,000 MG in SODIUM CHLORIDE 0.9% INJ 100 ML IV SCH ×3 (05:00→21:08)
[2017-03-18 08:57] VITALS: BP 156/88; PULSE 59; RESP 19; TEMP 97.5; O2SAT 96
--- NOTE | 2017-03-18 09:00 | HHI.PR ---
Subjective Remarks Patient in the chair. No nausea or vomiting able to eat. No fever or chills. Pain is controlled by meds. Urine is clear. Objective Vitals Vital Signs Date Time Temp Pulse Resp B/P Pulse Ox O2 Delivery O2 Flow Rate FiO2 03/18/17 08:57 97.5 59 19 156/88 96 03/18/17 00:00 97.1 62 18 145/92 96 03/17/17 20:00 98.2 63 18 143/89 98 03/17/17 17:02 98.1 18 19 135/82 95 03/17/17 12:53 97.4 65 19 154/94 95 03/17/17 11:07 18 I/O 03/17/17 03/17/17 03/17/17 03/18/17 03/18/17 03/18/17 07:00 15:00 23:00 07:00 15:00 23:00 Intake Total 2395 ml 120 ml 750 ml 960 ml Output Total 1550 ml 1850 ml 3450 ml Balance 2395 ml -1430 ml -1100 ml -2490 ml Intake Oral 120 ml 750 ml 420 ml IV Total 2395 ml 540 ml Output Urine Total 1550 ml 1850 ml 3450 ml # Bowel Movements 0 1 1 Result Diagram: 03/17/1728 03/17/17527 Imaging Last Impressions Abdomen/Pelvis CT 03/10/17 1129 Signed Impressions: Service Date/Time: Friday, March 10, 2017 11:41 - CONCLUSION: 1. Large calcified bladder stone. 2. 3 mm stone upper pole left kidney not causing obstruction. 3. A few tiny gallstones in the gallbladder. No biliary tract obstruction. 4. Diffuse enlargement of the prostate gland. Jose Luis Rushing MD Chest X-Ray 03/10/17 1114 Signed Impressions: Service Date/Time: Friday, March 10, 2017 11:33 - CONCLUSION: No acute disease. Harvey Roque MD FACR Objective Remarks GENERAL: 61 yo male, well nourished, well developed patient, appears in nad. CARDIOVASCULAR: Regular rate and rhythm. RESPIRATORY: No accessory muscle use. Clear to auscultation. Breath sounds equal bilaterally. GASTROINTESTINAL: Abdomen soft, non-tender, nondistended. Hepatic and splenic margins not palpable. MUSCULOSKELETAL: Extremities without clubbing, cyanosis, or edema. No obvious deformities. NEUROLOGICAL: Awake and alert. No obvious cranial nerve deficits. Motor grossly within normal limits. Five out of 5 muscle strength in the arms and legs. Normal speech. PSYCHIATRIC: Appropriate mood and affect; insight and judgment normal. A/P Problem List: (1) Kidney stone ICD Code: N20.0 Status: Acute (2) Sepsis ICD Code: A41.9 Status: Acute (3) Acute kidney injury ICD Code: N17.9 Status: Resolved (4) HTN (hypertension) ICD Code: I10 Status: Acute Assessment and Plan (1) Kidney stone ICD Code: N20.0 Status: Acute Plan: Patient has history of kidney stones Maintain fagan Urological evaluation appreciated Continue with IV fluids and antibiotics Pain meds per pain scale PO and IV dilaudid for breakthrough pain (2) Sepsis ICD Code: A41.9 Status: Acute Plan: Severe sepsis secondary to ESBL Escherichia coli in the urine and blood stream Repeat blood cultures 03/15/17 positive one bottle. Repeat blood cultures 03/18/17 Patient with fever 11.7 heart rate improved Leukocytosis mildly improved with improved lactic acid. Likely sepsis from UTI/bacteremia, complicated Continue with IV hydration and antibiotics (meropenem) per ID (3) Acute kidney injury ICD Code: N17.9 Status: Resolved Plan: improved Continue with IV hydration, avoid nephrotoxins (4) HTN (hypertension) ICD Code: I10 Status: Acute Plan: uncontrolled on amlodipine alone We'll add Coreg as patient's medications are from [place] and he does not recall what they are Patient also with pain , will add pain meds per pain scale Discharge Planning Pending improvement. Continue current IV antibiotics Discussed with the patient, nurse, family at bedside Annie Craig MD Mar 18, 2017 09:00
[2017-03-18] MEDS: SODIUM CHLORIDE 0.9% FLUSH 10 ML FLUSH IV FLUSH SCH ×2 (11:14→20:48)
[2017-03-18] MEDS: amLODIPine BESYLATE 5 MG TAB PO SCH (11:14)
[2017-03-18] MEDS: OXYBUTYNIN CHLORIDE 5 MG TAB PO SCH ×2 (11:14→21:08)
[2017-03-18] MEDS: TAMSULOSIN HCL 0.4 MG CAP PO SCH (11:14)
[2017-03-18] MEDS: CARVEDILOL 6.25 MG TAB PO SCH ×2 (11:14→21:08)
[2017-03-18 13:23] VITALS: BP 136/87; PULSE 63; RESP 19; TEMP 98.5; O2SAT 98
[2017-03-18 17:34] VITALS: BP 154/87; PULSE 82; RESP 19; TEMP 97.8; O2SAT 96
[2017-03-18 20:00] VITALS: BP 155/93; PULSE 71; RESP 18; TEMP 99.1; O2SAT 96
[2017-03-19] VITALS: BP 143/87; PULSE 73; RESP 18; TEMP 98.5; O2SAT 96
[2017-03-19] MEDS: MEROPENEM INJ 1,000 MG in SODIUM CHLORIDE 0.9% INJ 100 ML IV SCH ×3 (05:11→20:36)
--- NOTE | 2017-03-19 08:13 | HHI.PR ---
Subjective Remarks Feels much better. No n/v/d/c. Denies chest pain sob, n/v/d/c. Pain is better controlled. Urine is clear. No fever or chills overnight. Objective Vitals Vital Signs Date Time Temp Pulse Resp B/P Pulse Ox O2 Delivery O2 Flow Rate FiO2 03/19/17 00:00 98.5 73 18 143/87 96 03/18/17 20:00 99.1 71 18 155/93 96 03/18/17 17:34 97.8 82 19 154/87 96 03/18/17 13:23 98.5 63 19 136/87 98 03/18/17 08:57 97.5 59 19 156/88 96 I/O 03/18/17 03/18/17 03/18/17 03/19/17 03/19/17 03/19/17 07:00 15:00 23:00 07:00 15:00 23:00 Intake Total 960 ml 1380 ml Output Total 3450 ml 800 ml 1550 ml Balance -2490 ml 580 ml -1550 ml Intake Oral 420 ml 480 ml IV Total 540 ml 900 ml Output Urine Total 3450 ml 800 ml 1550 ml # Bowel Movements 1 2 0 Result Diagram: 03/17/1728 03/17/1728 Imaging Last Impressions Abdomen/Pelvis CT 03/10/17 1129 Signed Impressions: Service Date/Time: Friday, March 10, 2017 11:41 - CONCLUSION: 1. Large calcified bladder stone. 2. 3 mm stone upper pole left kidney not causing obstruction. 3. A few tiny gallstones in the gallbladder. No biliary tract obstruction. 4. Diffuse enlargement of the prostate gland. Jose Luis Rushing MD Chest X-Ray 03/10/17 1114 Signed Impressions: Service Date/Time: Friday, March 10, 2017 11:33 - CONCLUSION: No acute disease. Harvey Roque MD FACR Objective Remarks GENERAL: 61 yo male, well nourished, well developed patient, appears in nad. CARDIOVASCULAR: Regular rate and rhythm. RESPIRATORY: No accessory muscle use. Clear to auscultation. Breath sounds equal bilaterally. GASTROINTESTINAL: Abdomen soft, non-tender, nondistended. Hepatic and splenic margins not palpable. MUSCULOSKELETAL: Extremities without clubbing, cyanosis, or edema. No obvious deformities. NEUROLOGICAL: Awake and alert. No obvious cranial nerve deficits. Motor grossly within normal limits. Five out of 5 muscle strength in the arms and legs. Normal speech. PSYCHIATRIC: Appropriate mood and affect; insight and judgment normal. A/P Problem List: (1) Kidney stone ICD Code: N20.0 Status: Acute (2) Sepsis ICD Code: A41.9 Status: Acute (3) Acute kidney injury ICD Code: N17.9 Status: Resolved (4) HTN (hypertension) ICD Code: I10 Status: Acute Assessment and Plan (1) Kidney stone ICD Code: N20.0 Status: Acute Plan: Patient has history of kidney stones Maintain fagan Urological evaluation appreciated Continue with IV fluids and antibiotics. Continue Meropenem through 03/20/17 per ID recommendations. Pain meds per pain scale PO and IV dilaudid for breakthrough pain (2) Sepsis ICD Code: A41.9 Status: Acute Plan: Severe sepsis secondary to ESBL Escherichia coli in the urine and blood stream Repeat blood cultures 03/15/17 positive one bottle. Repeat blood cultures 03/18/17 Patient with fever 11.7 heart rate improved Leukocytosis mildly improved with improved lactic acid. Likely sepsis from UTI/bacteremia, complicated Continue with IV hydration and antibiotics (meropenem) per ID (3) Acute kidney injury ICD Code: N17.9 Status: Resolved Plan: improved Continue with IV hydration, avoid nephrotoxins (4) HTN (hypertension) ICD Code: I10 Status: Acute Plan: uncontrolled on amlodipine alone We'll add Coreg as patient's medications are from [place] and he does not recall what they are Patient also with pain , will add pain meds per pain scale Discharge Planning Pending improvement. Continue current IV antibiotics until 03/20/17. DC tomorrow after IV abx completed. Discussed with the patient, nurse, family at bedside Annie Craig MD Mar 19, 2017 08:13
[2017-03-19 08:50] VITALS: BP 145/100; PULSE 67; RESP 16; TEMP 98.2; O2SAT 96
[2017-03-19] MEDS: SODIUM CHLORIDE 0.9% FLUSH 10 ML FLUSH IV FLUSH SCH ×2 (09:00→20:36)
[2017-03-19] MEDS: CARVEDILOL 6.25 MG TAB PO SCH ×2 (09:47→20:36)
[2017-03-19] MEDS: TAMSULOSIN HCL 0.4 MG CAP PO SCH (09:47)
[2017-03-19] MEDS: OXYBUTYNIN CHLORIDE 5 MG TAB PO SCH ×2 (09:47→20:36)
[2017-03-19] MEDS: amLODIPine BESYLATE 5 MG TAB PO SCH (09:47)
[2017-03-19 13:44] VITALS: BP 148/97; PULSE 78; RESP 16; TEMP 96.8; O2SAT 98
[2017-03-19 17:52] VITALS: BP 144/93; PULSE 69; RESP 16; TEMP 96.2; O2SAT 97
[2017-03-19 20:00] VITALS: BP 179/100; PULSE 80; RESP 16; TEMP 98.6; O2SAT 94
[2017-03-20] VITALS: BP 157/94; PULSE 81; RESP 16; TEMP 98.3; O2SAT 96
[2017-03-20] MEDS: MEROPENEM INJ 1,000 MG in SODIUM CHLORIDE 0.9% INJ 100 ML IV SCH ×2 (04:52→12:45)
[2017-03-20] MEDS: SODIUM CHLOR 0.9% 1000 ML INJ 1,000 ML IV SCH (04:52)
[2017-03-20 08:00] VITALS: BP 102/65; PULSE 82; RESP 16; TEMP 98.7; O2SAT 96
[2017-03-20] MEDS ORDERED: NORC5TAB PO (09:08)
[2017-03-20] MEDS ORDERED: OXYB5TAB10 PO (09:08)
[2017-03-20] MEDS ORDERED: CARV6.25 PO (09:08)
[2017-03-20] MEDS ORDERED: BO60R RECTAL (09:08)
[2017-03-20] MEDS ORDERED: TAMS5CAP PO (09:08)
--- NOTE | 2017-03-20 09:08 | HHI.DS ---
Discharge Summary Admission Date Mar 10, 2017 at 13:13 Discharge Date: Mar 20, 2017 Admitting Diagnosis SEPSIS-POSSIBLE SOURCE INFECTED KIDNEY STONE (1) Kidney stone ICD Code: N20.0 Diagnosis: Principal (2) Sepsis ICD Code: A41.9 Diagnosis: Principal (3) Acute kidney injury ICD Code: N17.9 Diagnosis: Principal (4) HTN (hypertension) ICD Code: I10 Diagnosis: Secondary Procedures none Brief History - From Admission Patient is a 61-year-old gentleman with a history of hypertension and prostate enlargement has come to the emergency room complaining of confusion, myalgias and fever of 105 at home per his spouse. Patient had some increasing dysuria and frequency and is noted to be septic on exam with evidence of urinary tract infection. Images did show a very large bladder stone. Patient denies any history of nephrolithiasis and has not had any trouble previously with kidney trouble or pain. He was quite confused since family was concerned because he was delirious. Patient's been admitted to the hospital with signs and symptoms of sepsis. His symptoms have improved with IV hydration and initiation of antibiotics and the patient's bladder and testicular pain is now 3 out of 10 from 7 out of 10 after ibuprofen in the emergency room. CBC/BMP: 03/17/17 0528 03/17/17 0528 Imaging Last Impressions Abdomen/Pelvis CT 03/10/17 1129 Signed Impressions: Service Date/Time: Friday, March 10, 2017 11:41 - CONCLUSION: 1. Large calcified bladder stone. 2. 3 mm stone upper pole left kidney not causing obstruction. 3. A few tiny gallstones in the gallbladder. No biliary tract obstruction. 4. Diffuse enlargement of the prostate gland. Jose Luis Rushing MD Chest X-Ray 03/10/17 1114 Signed Impressions: Service Date/Time: Friday, March 10, 2017 11:33 - CONCLUSION: No acute disease. Harvey Roque MD FACR PE at Discharge GENERAL: 61 yo male, well nourished, well developed patient, appears in nad. CARDIOVASCULAR: Regular rate and rhythm. RESPIRATORY: No accessory muscle use. Clear to auscultation. Breath sounds equal bilaterally. GASTROINTESTINAL: Abdomen soft, non-tender, nondistended. Hepatic and splenic margins not palpable. MUSCULOSKELETAL: Extremities without clubbing, cyanosis, or edema. No obvious deformities. NEUROLOGICAL: Awake and alert. No obvious cranial nerve deficits. Motor grossly within normal limits. Five out of 5 muscle strength in the arms and legs. Normal speech. PSYCHIATRIC: Appropriate mood and affect; insight and judgment normal. Pt update on day of discharge Patient at the margin of the bed. No fever or chills. No n/v/d/c. Denies fever or chills. Discussed at length discharge plan with the patient. . also by phone with their daughter Jessenia per patient request. Hospital Course (1) Kidney stone ICD Code: N20.0 Status: Acute Plan: Patient has history of kidney stones Maintain fagan Urological evaluation appreciated Continue with IV fluids and antibiotics. Continue Meropenem through 03/20/17 per ID recommendations. Pain meds per pain scale PO and IV dilaudid for breakthrough pain (2) Sepsis ICD Code: A41.9 Status: Acute Plan: Severe sepsis secondary to ESBL Escherichia coli in the urine and blood stream Repeat blood cultures 03/15/17 positive one bottle. Repeat blood cultures 03/18/17 Patient with fever 11.7 heart rate improved Leukocytosis mildly improved with improved lactic acid. Likely sepsis from UTI/bacteremia, complicated Continue with IV hydration and antibiotics (meropenem) per ID (3) Acute kidney injury ICD Code: N17.9 Status: Resolved Plan: improved Continue with IV hydration, avoid nephrotoxins (4) HTN (hypertension) ICD Code: I10 Status: Acute Plan: uncontrolled on amlodipine alone We'll add Coreg as patient's medications are from [place] and he does not recall what they are Patient also with pain , will add pain meds per pain scale Discharge Planning Pending improvement. Finished Meropenem IV antibiotics 03/20/17. Discussed with Dr Bolanos ID doesn't recommends any other abx PO at Discharge. Also discussed with Dr Garcia urology recommends to keep the [place] at discharge and patient to follow up as OP with urology for cystoscopy. Discussed with the patient, nurse, family at bedside Pt Condition on Discharge: Stable Discharge Disposition: Discharge Home Discharge Time: > 30 minutes Discharge Instructions DIET: Follow Instructions for: Heart Healthy Diet Activities you can perform: Regular-No Restrictions Follow up Referrals: PCP Follow-up - 3-5 Days Urology - 1 Week New Medications: Hydrocodone-Acetaminophen (Orange) 5-325 mg Tab 1 TAB PO Q6H PRN PAIN #15 Ref 0 TAB Belladonna-Opium Supp (Belladonna-Opium Supp) 16.2-60 Mg Supp 60 MG RECTAL Q6HR PRN bladder spasms #30 SUPP Carvedilol (Coreg) 6.25 Mg Tab 6.25 MG PO Q12HR Blood Pressure Management #60 TAB Oxybutynin (Ditropan) 5 Mg Tab 5 MG PO Q12HR bladder spasm #60 TAB Tamsulosin (Flomax) 0.4 Mg Cap 0.4 MG PO DAILY bph #30 CAP Continued Medications: Amlodipine (Amlodipine) 5 Mg Tab 5 MG PO DAILY Blood Pressure Management #30 Ref 0 TAB ([Diuretic]) 1 TAB PO DAILY ([Htn Med]) 1 TAB PO DAILY Annie Craig MD Mar 20, 2017 09:08
[2017-03-20] MEDS: CARVEDILOL 6.25 MG TAB PO SCH (10:20)
[2017-03-20] MEDS: amLODIPine BESYLATE 5 MG TAB PO SCH (10:20)
[2017-03-20] MEDS: TAMSULOSIN HCL 0.4 MG CAP PO SCH (10:20)
[2017-03-20] MEDS: OXYBUTYNIN CHLORIDE 5 MG TAB PO SCH (10:20)
[2017-03-20] MEDS: SODIUM CHLORIDE 0.9% FLUSH 10 ML FLUSH IV FLUSH SCH (10:25)
[2017-03-20 12:30] VITALS: BP 145/89; PULSE 64; RESP 15; TEMP 98; O2SAT 96
== END 2017-03-20 18:36 | disposition home or self-care (01) | DRG 872 ==
LOC: PHED 11:05 → OBSVTOIN 13:13 → PHEDA 13:13 → PH3A 14:06
PROVIDERS: ADMIT Hospitalist; ATTEND Hospitalist
DX: A41.51 Sepsis due to Escherichia coli [E. coli] (principal); N17.9 Acute kidney failure, unspecified; N39.0 Urinary tract infection, site not specified; I10 Essential (primary) hypertension; N21.0 Calculus in bladder; N50.819 Testicular pain, unspecified; Z82.49 Family history of ischemic heart disease and other diseases of the circulatory system; Z80.42 Family history of malignant neoplasm of prostate; N20.0 Calculus of kidney; R65.20 Severe sepsis without septic shock; Z16.12 Extended spectrum beta lactamase (ESBL) resistance; N40.1 Benign prostatic hyperplasia with lower urinary tract symptoms; N32.89 Other specified disorders of bladder; Z87.442 Personal history of urinary calculi; K80.20 Calculus of gallbladder without cholecystitis without obstruction; R41.0 Disorientation, unspecified
CPT/HCPCS: 71010; 74176; 80048; 80053; 81001; 82550; 83036; 83605; 83690; 83735; 85007; 85025; 85027; 86403; 87040; 87077; 87086; 87149; 87186; 87205; 87804; 96361; 96365; J0696; J1885; J2185; J2270; J7030